=== PATIENT | male | born 1995 | race Caucasian/White ===

== ENCOUNTER 2016-07-17 00:36 | Emergency (ER) | payer OTHER ==
[~2016-07-17] VITALS: Ht 172.7 cm; Wt 68.6 kg
[~2016-07-17 00:36] MED LIST: EPP3/2 IM
[2016-07-17 00:54] VITALS: TEMP 36.8; Ht 172.7 cm; Wt 68.6 kg
[2016-07-17] MEDS ORDERED: VNTHFA/IN INH (00:57)
[2016-07-17] MEDS ORDERED: LORAZEPAM 2 MG/ML 1 ML VIAL IV STA (01:09)
[2016-07-17 01:56] LABS: BASO % 0.2 %; BASO ABS # 0.02 K/uL (0-0.2); COMPLETE YES; EOS % 0.4 %; HEMATOCRIT 43.4 % (42-52); IG% 0.2 %; LYMPH % 24.3 %; MEAN CELL VOLUME 86.8 fL (80-100); MEAN CORPUSCULAR HEMOGLOBIN 31.2 pg (25-34); MEAN CORPUSCULAR HGB CONC 35.9 g/dl (32-36); MONO % 8.6 %; NEUT % 66.3 %; PLATELET COUNT 251 K/uL (130-400)
[2016-07-17 02:16] LABS: ALT/SGPT 33 U/L (12-78); AST/SGOT 18 U/L (15-37); BLOOD UREA NITROGEN 15 mg/dl (7-18); BUN/CREATININE RATIO 17.1 (10-20); CARBON DIOXIDE 26 mmol/L (21-32); CHLORIDE 105 mmol/L (98-107); CREATININE 0.88 mg/dl (0.60-1.40); GLUCOSE 91 mg/dl (70-99); POTASSIUM 2.9 mmol/L (3.5-5.1); SODIUM 141 mmol/L (136-145)
[2016-07-17 02:21] LABS: ALKALINE PHOSPHATASE 49 U/L (45-117); CKMB/CK RATIO 1.3 (0-3.0)
[2016-07-17] MEDS ORDERED: POTASSIUM CHLORIDE 10 MEQ TABCR PO STA (03:00)
[2016-07-17] MEDS ORDERED: ATIVAN 1MG HOMEPACK PO ONE (03:15)
[2016-07-17 03:29] VITALS: BP 121/74; PULSE 72; O2SAT 98
--- NOTE | 2016-07-17 05:24 | EMERGENCY ROOM VISIT NOTE ---
History First contact with patient: 01:07 Chief Complaint: ANXIETY Stated Complaint: CHEST PAIN/ANXIETY History of Present Illness The patient is a 21 year old male who presents to the Emergency Room with complaints of feeling stressed and overwhelmed with chest pain and anxiety the past few days after breaking up with his girlfriend. Patient states she found out that his girlfriend was cheating on him. They have a child together. He states he feels overwhelmed and stressed out. He does have partial custody of the child. Patient denies fever, chills, dysuria, thoughts of suicide, thoughts of homicide, delusions, hallucinations, lightheadedness or dizziness. He does not currently have a therapist. No alcohol or drug use. Review of Systems See HPI for pertinent positives & negatives. A total of 10 systems reviewed and were otherwise negative. Past Medical/Surgical History Medical Problems: (1) Acute bronchitis (2) ALCOHOL ABUSE-UNSPEC (3) ANXIETY STATE NOS (4) CANNABIS ABUSE-UNSPEC (5) Corneal abrasion, right (6) DEPRESSIVE DISORDER NEC (7) Gastroenteritis (8) Head injury (9) HYPERTENSION NOS (10) Laceration (11) Left eye trauma (12) left knee surgery (13) POISONING-ANTITUSSIVES Family History Diabetes mellitus FH: heart disease FHx: cancer FHx: gallbladder disease FHx: lung disease Hypertension Kidney disease Kidney stones Social History Smoking Status: Current Every Day Smoker Alcohol Use: none Drug Use: none, marijuana Marital Status: Housing Status: lives with family Occupation Status: unemployed Current/Historical Medications Scheduled PRN Albuterol Hfa (Ventolin Hfa), 2-4 PUFFS INH DIRECTED PRN for SOB/Wheezing Epinephrine (Epipen), 0.3 MG IM UD PRN for ALLERGIC REACTION Allergies Coded Allergies: Chocolate (Verified Allergy, Severe, ANAPHYLAXIS, 07/17/16) THE COCOA ZACARIAS ONLY..CAN EAT WHITE CHOCOLATE..pt reports throat closes when eats chocolate Physical Exam Vital Signs Date Time Temp Pulse Resp B/P Pulse Ox O2 Delivery O2 Flow Rate FiO2 07/17/16 03:29 72 20 121/74 98 Room Air 07/17/16 02:23 77 19 136/91 97 Room Air 07/17/16 00:54 36.8 96 12 128/96 99 Room Air 07/17/16 00:50 77 07/17/16 00:45 Room Air Pain Rating (0-10): 0 Physical Exam VITALS: Vitals are noted on the nurse's note and reviewed by myself. Vital signs stable. GENERAL: Anxious-appearing male, in no acute distress, nondiaphoretic, well- developed well-nourished. SKIN: The skin was without rashes, erythema, edema, or bruising. There is no tenting of the skin. Capillary reflex less than 2 seconds. HEAD: Normocephalic atraumatic. EARS: External auditory canals clear, tympanic membranes pearly ortega without erythema or effusion bilaterally. EYES: Pupils equal round and reactive to light and accommodation. Conjunctivae without injection, sclerae without icterus. Extraocular movements intact. NOSE: Patent, turbinates without inflammation or discharge. MOUTH: Mucous membranes moist. Pharynx without erythema or exudate. Uvula midline. Airway patent. Tongue does not deviate. NECK: Supple without nuchal rigidity. No lymphadenopathy. No thyromegaly. Cervical spine is nontender. No JVD. HEART: Regular rate and rhythm without murmurs gallops or rubs. LUNGS: Clear to auscultation bilaterally without wheezes, rales or rhonchi. No dullness to percussion. No retractions or accessory muscle use. ABDOMEN: Positive bowel sounds x 4. Normal tympanic percussion. Soft, nontender, without masses or organomegaly. Bardales sign negative. No guarding or rebound tenderness. MUSCULOSKELETAL: No muscle atrophy, erythema, or edema noted. NEURO: Patient was alert and oriented to person place and time. Normal sensation to light and sharp touch. No focal neurological deficits. Psych: Anxious-appearing cooperative Medical Decision & Procedures Laboratory Results 07/17/16 01:38 Red Blood Count 5.00, Mean Corpuscular Volume 86.8, Mean Corpuscular Hemoglobin 31.2, Mean Corpuscular Hemoglobin Concent 35.9, Mean Platelet Volume 11.0, Neutrophils (%) (Auto) 66.3, Lymphocytes (%) (Auto) 24.3, Monocytes (%) (Auto) 8.6, Eosinophils (%) (Auto) 0.4, Basophils (%) (Auto) 0.2, Neutrophils # (Auto) 6.83, Lymphocytes # (Auto) 2.50, Monocytes # (Auto) 0.89, Eosinophils # (Auto) 0.04, Basophils # (Auto) 0.02 07/17/16 01:38 Test 07/17/16 01:38 White Blood Count 10.30 K/uL (4.8-10.8) Red Blood Count 5.00 M/uL (4.7-6.1) Hemoglobin 15.6 g/dL (14.0-18.0) Hematocrit 43.4 % (42-52) Mean Corpuscular Volume 86.8 fL (80-100) Mean Corpuscular Hemoglobin 31.2 pg (25-34) Mean Corpuscular Hemoglobin Concent 35.9 g/dl (32-36) Platelet Count 251 K/uL (130-400) Mean Platelet Volume 11.0 fL (7.4-10.4) Neutrophils (%) (Auto) 66.3 % Lymphocytes (%) (Auto) 24.3 % Monocytes (%) (Auto) 8.6 % Eosinophils (%) (Auto) 0.4 % Basophils (%) (Auto) 0.2 % Neutrophils # (Auto) 6.83 K/uL (1.4-6.5) Lymphocytes # (Auto) 2.50 K/uL (1.2-3.4) Monocytes # (Auto) 0.89 K/uL (0.11-0.59) Eosinophils # (Auto) 0.04 K/uL (0-0.5) Basophils # (Auto) 0.02 K/uL (0-0.2) RDW Standard Deviation 42.5 fL (36.4-46.3) RDW Coefficient of Variation 13.4 % (11.5-14.5) Immature Granulocyte % (Auto) 0.2 % Immature Granulocyte # (Auto) 0.02 K/uL (0.00-0.02) Anion Gap 10.0 mmol/L (3-11) Est Creatinine Clear Calc Drug Dose 127.4 ml/min Estimated GFR () 141.3 Estimated GFR (Non- 121.9 BUN/Creatinine Ratio 17.1 (10-20) Calcium Level 9.0 mg/dl (8.5-10.1) Magnesium Level 2.0 mg/dl (1.8-2.4) Total Bilirubin 0.7 mg/dl (0.2-1) Direct Bilirubin 0.2 mg/dl (0-0.2) Aspartate Amino Transf (AST/SGOT) 18 U/L (15-37) Alanine Aminotransferase (ALT/SGPT) 33 U/L (12-78) Alkaline Phosphatase 49 U/L (45-117) Total Creatine Kinase 72 U/L (39-308) Creatine Kinase MB 0.9 ng/ml (0.5-3.6) Creatine Kinase MB Ratio 1.3 (0-3.0) Troponin I < 0.015 ng/ml (0-0.045) Total Protein 7.4 gm/dl (6.4-8.2) Albumin 4.6 gm/dl (3.4-5.0) Medications Administered Medications (Trade) Dose Ordered Sig/Aiden Route Start Time Stop Time Status Last Admin Dose Admin Lorazepam (Ativan Inj) 1 mg NOW STAT IV 07/17/16 01:09 07/17/16 01:11 DC 07/17/16 01:47 1 MG Potassium Chloride (Klor-Con M10) 60 meq NOW STAT PO 07/17/16 03:00 07/17/16 03:01 DC 07/17/16 03:25 60 MEQ Lorazepam (Ativan 1MG Home Pack) 1 homepack UD ONCE PO 07/17/16 03:15 07/17/16 03:16 DC 07/17/16 03:25 1 HOMEPACK ED Course Prior records/ancillary studies reviewed. Triage Nursing notes reviewed. Additional history obtained from family. The patient's history was concerning for chest pain. Differential diagnosis: Etiologies such as anxiety, cardiac ischemia, aortic dissection, pulmonary embolism, pneumonia, pneumothorax, musculoskeletal, infections, pericarditis, myocarditis, esophageal rupture, gastrointestinal, as well as others were entertained. Physical examination: As above. ER treatment provided: Ativan On reassessment the patient felt better. Diagnostic interpretation by me: The electrocardiogram was negative for pathologic change. Normal sinus, normal intervals, no acute ST-T wave changes. Impression normal sinus rhythm interpreted by myself The labs revealed no worrisome electrolyte abnormality besides hypokalemia and this is replaced orally. Negative troponin Imaging studies: Chest x-ray without acute consolidation or pneumothorax per my interpretation Exam and history seem consistent with chest pain related to anxiety. Patient has been overwhelmed and stressed lately. He had no suicidal or homicidal ideations on exam. He is well-appearing. He was given information on therapists in the area. He did not want to speak to a therapist tonalonzo. He was advised to decrease his stress and follow-up with family care in a few days or here in the ER sooner for chest pain, difficulty breathing, but the suicide, worsening signs or symptoms or as needed. By the evaluation outlined above emergent etiologies such as cardiac ischemia, aortic dissection, pulmonary embolism, pneumonia, pneumothorax, infections, pericarditis, myocarditis, gastrointestinal, as well as others were deemed relatively unlikely. The pt informed about the findings as listed above. All questions were answered and pleased with the treatment. Return instructions were outlined and the patient was discharged in stable condition. Referral: The patient was referred back to primary care physician for follow-up in 2 to 3 days for a recheck of the current condition. Case reviewed by attending Medical Decision As above Impression Primary Impression: Anxiety Additional Impression: Hypokalemia Departure Information Dispostion Home / Self-Care Condition GOOD Referrals Georgina Cast D.O. (PCP) Forms HOME CARE DOCUMENTATION FORM, IMPORTANT VISIT INFORMATION Patient Instructions Anxiety Body Response, Hypokalemia Dc, [facility] Additional Instructions DO NOT drive, drink alcohol, operate machinery, or perform dangerous activities today. You were given medications in the ER that can affect your ability to safely function or operate a vehicle. Take the potassium that was given to you in the ER at lunch tomorrow. Ativan 1m tablet every 8 hours as needed for anxiety. No alcohol or Driving on this medication. Ibuprofen(Motrin, Advil) may be used for fever or pain. Use 600mg every six hours as needed. Take with food. Avoid using more than 2400mg in a 24 hour period. Do not use 2400mg per day for more than three consecutive days without physician direction. Prolonged inappropriate use can lead to stomach upset or ulcers. (AND/OR) Acetaminophen(Tylenol) may be used for fever or pain. Use 1000mg every six hours as needed. Avoid using more than 3000mg in a 24 hour period. Continue current medications. Return to the ER immediately for worsening or persistent anxiety, thoughts of hurting yourself, abdominal pain, vomiting, fevers, chest pains, difficulty breathing, black or bloody stools, worsening of your condition, or as needed. Follow up with your primary physician in 2-3 days for a recheck of your current condition. Recommended to see a therapist. Please use the paper that was given to you to find a therapist in the area. Problem Qualifiers
--- NOTE | 2016-07-17 09:55 | DIAGNOSTIC IMAGING REPORT ---
SINGLE VIEW CHEST CLINICAL HISTORY: Atypical chest pain. FINDINGS: An AP, portable, upright chest radiograph is compared to study dated 04/14/2016. The examination is mildly degraded by portable technique and patient rotation. The cardiomediastinal silhouette is unremarkable. The lungs and pleural spaces are clear. No pneumothorax is seen. The bony thorax is grossly intact. IMPRESSION: No active disease in the chest. Electronically signed by: Eze Esparza M.D. 07/17/2016 9:53 AM Dictated Date/Time: 07/17/2016 9:52 AM
== END 2016-07-17 03:32 | disposition home or self-care (01) ==
LOC: EDBD 00:36 → C.EDB 00:39
DX: F41.9 Anxiety disorder, unspecified (principal); E87.6 Hypokalemia; F12.10 Cannabis abuse, uncomplicated; F32.9 Major depressive disorder, single episode, unspecified; I10 Essential (primary) hypertension; Z83.3 Family history of diabetes mellitus; Z82.49 Family history of ischemic heart disease and other diseases of the circulatory system; F17.210 Nicotine dependence, cigarettes, uncomplicated

== ENCOUNTER 2016-09-12 14:44 | Emergency (ER) | payer OTHER ==
[~2016-09-12] VITALS: Ht 170.2 cm; Wt 65.7 kg
[~2016-09-12 14:44] MED LIST changes: +VNTHFA/IN INH
[2016-09-12 14:50] VITALS: TEMP 37.1; Ht 170.2 cm; Wt 65.7 kg
[2016-09-12] MEDS ORDERED: MUPIROCIN 2% OINT 22 GM TUBE EXT STA (16:30)
[2016-09-12] MEDS ORDERED: CEPHALEXIN 500MG HOME PACK 1 EA BTL PO ONE (16:30)
[2016-09-12] MEDS ORDERED: BCTCR TOP (16:34)
[2016-09-12] MEDS ORDERED: CEPH500C PO (16:34)
--- NOTE | 2016-09-12 16:35 | EMERGENCY ROOM VISIT NOTE ---
History Report prepared by Nacho: Shady Sterling Under the Supervision of: Dr. Rolo Carrera M.D. First contact with patient: 16:20 Chief Complaint: TESTICULAR PAIN Stated Complaint: PAINFUL LUMP ON TESTICLES, HAVING SURG THIS WEEK Nursing Triage Summary: right testicle pain started 3 months going for vasectomy on tuesday lump has swollen and turned purple pain now shooting up in abd makes him want to vomit with the pain. attempted to pop only gets blood History of Present Illness The patient is a 21 year old male who presents to the Emergency Room with complaints of worsening right testicular pain for the past three months. He states that he has a growing lump. The patient states that he tried to move this morning, and he got a sharp pain that radiated into his abdomen. The patient states that the pain is worsened with movement, palpation, coughing, and urinating. The patient denies any fever, chills, penile discharge, lesions, or back pain. He states that he coughs because he is a smoker. The patient states that he is getting a vasectomy in three days, and the urologist has not commented on the lump. The patient states that he tried popping the lump and blood came out. Source of History: patient Onset: three months ago Position: other (testicles) Quality: sharp Timing: worsening Modifying Factors (Worsening): movement, urination Associated Symptoms: No back pain, No chills, No fevers Review of Systems See HPI for pertinent positives & negatives. A total of 10 systems reviewed and were otherwise negative. Past Medical & Surgical Medical Problems: (1) Acute bronchitis (2) ALCOHOL ABUSE-UNSPEC (3) ANXIETY STATE NOS (4) CANNABIS ABUSE-UNSPEC (5) Corneal abrasion, right (6) DEPRESSIVE DISORDER NEC (7) Gastroenteritis (8) Head injury (9) HYPERTENSION NOS (10) Laceration (11) Left eye trauma (12) left knee surgery (13) POISONING-ANTITUSSIVES Old medical records were reviewed. Nurse's notes were reviewed and I agree with. Family History Diabetes mellitus FH: heart disease FHx: cancer FHx: gallbladder disease FHx: lung disease Hypertension Kidney disease Kidney stones Social History Smoking Status: Current Every Day Smoker Alcohol Use: none Drug Use: none, marijuana Marital Status: Housing Status: lives with family Occupation Status: unemployed Current/Historical Medications Scheduled Cephalexin Monohydrate (Keflex), 500 MG PO QID Mupirocin (Bactroban), 1 APPLN TOP TID Scheduled PRN Albuterol Hfa (Ventolin Hfa), 2-4 PUFFS INH DIRECTED PRN for SOB/Wheezing Epinephrine (Epipen), 0.3 MG IM UD PRN for ALLERGIC REACTION Allergies Coded Allergies: Chocolate (Verified Allergy, Severe, ANAPHYLAXIS, 09/12/16) THE COCOA ZACARIAS ONLY..CAN EAT WHITE CHOCOLATE..pt reports throat closes when eats chocolate Physical Exam Vital Signs Date Time Temp Pulse Resp B/P Pulse Ox O2 Delivery O2 Flow Rate FiO2 09/12/16 16:52 74 16 119/72 97 Room Air 09/12/16 14:50 37.1 90 18 125/79 98 Room Air Physical Exam General: Non-ill appearing young male in no acute distress. HEENT: Normal cephalic atraumatic. Pupils are equal round and reactive to light. Extraocular movements are intact. Oropharynx is pink with moist mucous membranes. No swelling of the mouth lips or tongue. Neck: Supple with a midline trachea. No meningeal signs or stiffness, no JVD or bruits. No Stridor. Chest: Clear to auscultation bilaterally. No wheezes or rhonchi. No increased work of breathing. Heart: regular rate and rhythm. Abdomen: Soft nontender, nondistended without rebound guarding or rigidity. : Normal and testicle exams. On the base of the scrotum there is small swollen lump consistent with folliculitis. No drainable abscess. No cellulitis. No evidence of Marisela's gangrene Extremities: No cyanosis clubbing or edema. No calf tenderness or assymetry Spine/Back. Non tender to palpation. No CVA tenderness Skin: Good turgor without rashes. Neurologic exam: Non-focal. Moves all four limbs symmetrically Medical Decision & Procedures Medications Administered Medications (Trade) Dose Ordered Sig/Aiden Route Start Time Stop Time Status Last Admin Dose Admin Cephalexin Monohydrate (Keflex 500MG Home Pack) 1 homepack NOW ONCE PO 09/12/16 16:30 09/12/16 16:32 DC 09/12/16 16:30 1 HOMEPACK Mupirocin (Bactroban 2% Oint) 1 appln 1700 ONCE EXT 09/12/16 17:00 09/12/16 17:01 DC 09/12/16 16:52 1 APPLN ED Course 1620: Past medical records reviewed. The patient was evaluated in room C3, and a complete history and physical examination were performed. 1630: Keflex 500mg 1 Home Pack PO, Bactroban 2% Oint 1 appln EXT 1636: Upon reevaluation, the patient is feeling better. He states that he is not allergic to ibuprofen. I discussed the results and treatment plan with him. He verbalized agreement of the treatment plan. The patient was discharged home. Medical Decision Differentials include, but are not limited to; testicular torsion, epididymitis , hernia, cellulitis, folliculitis. This Patient comes in as described above. He was placed in room C3 with testicular pain although on exam and it is not actually his testicles. He has a small area of folliculitis of his scrotum. There is no evidence of cellulitis or Marisela's gangrene. The testicles and penis are normal and he has no evidence to suggest torsion epididymitis or orchitis. There is no drainable abscess at this point. I gave him a prescription for Bactroban as well as by mouth Keflex. He should keep the area clean and dry and use scrotal support return if increasing pain or swelling, redness or warmth or drainage, any new problems or concerns and keep his follow-up appointment this week with his doctor and get rechecked. Impression Primary Impression: Folliculitis Scribe Attestation The scribe's documentation has been prepared under my direction and personally reviewed by me in its entirety. I confirm that the note above accurately reflects all work, treatment, procedures, and medical decision making performed by me. Departure Information Dispostion Home / Self-Care Prescriptions Cephalexin Monohydrate (Keflex) 500 Mg Cap 500 MG PO QID for 7 Days, #28 CAP Prov: Rolo Carrera M.D. 09/12/16 Mupirocin (Bactroban) 15 Gm Cr 1 APPLN TOP TID for 10 Days, #30 GM Prov: Rolo Carrera M.D. 09/12/16 Forms HOME CARE DOCUMENTATION FORM, IMPORTANT VISIT INFORMATION, WORK / SCHOOL INSTRUCTIONS Patient Instructions [facility] Additional Instructions Rest. Use supportive underwear. Keep the area clean and dry. His warm compresses or take a bath. Apply Bactroban three times a daytopical antibiotic Use Keflex 500 mg 4 times a day for 7 days Use anti-inflammatory such as ibuprofen 400 mg every 6 hours for pain. Follow-up with your doctor this week for recheck.
[2016-09-12 16:52] VITALS: BP 119/72; PULSE 74; O2SAT 97
[2016-09-12] MEDS ORDERED: MUPIROCIN 2% OINT 22 GM TUBE EXT ONE (17:00)
== END 2016-09-12 16:54 | disposition home or self-care (01) ==
LOC: C.EDB 14:45 → C.EDC 16:54
DX: L73.9 Follicular disorder, unspecified (principal); F41.9 Anxiety disorder, unspecified; F32.9 Major depressive disorder, single episode, unspecified; I10 Essential (primary) hypertension; K52.9 Noninfective gastroenteritis and colitis, unspecified; F10.10 Alcohol abuse, uncomplicated; F12.10 Cannabis abuse, uncomplicated; F17.210 Nicotine dependence, cigarettes, uncomplicated; Z83.3 Family history of diabetes mellitus; Z82.49 Family history of ischemic heart disease and other diseases of the circulatory system; Z80.9 Family history of malignant neoplasm, unspecified; Z83.79 Family history of other diseases of the digestive system; Z83.6 Family history of other diseases of the respiratory system; Z84.1 Family history of disorders of kidney and ureter

== ENCOUNTER 2017-01-31 23:58 | Emergency (ER) | payer OTHER ==
[~2017-01-31] VITALS: Ht 172.7 cm; Wt 68.0 kg
[2017-02-01 00:02] VITALS: TEMP 36.6; Ht 172.7 cm; Wt 68.0 kg
[2017-02-01] MEDS ORDERED: PROPARACAINE HCL 0.5% OP SOLN 15 ML BTL ONE (00:24)
[2017-02-01] MEDS ORDERED: TOBRAMYCIN/DEXAMETHASONE OPH OINT 3.5 GM TUBE OP STA (00:58)
[2017-02-01 01:29] VITALS: BP 121/66; PULSE 71; O2SAT 97
--- NOTE | 2017-02-01 06:47 | EMERGENCY ROOM VISIT NOTE ---
History Report prepared by Nacho: Shabbir Bettencourt Under the Supervision of: Dr. Rodri Hinds M.D. First contact with patient: 00:19 Chief Complaint: EYE ASSESSMENT Stated Complaint: RIGHT EYE SWOLLEN AND BLURRY History of Present Illness The patient is a 21 year old male who presents to the Emergency Room with complaints of right eye pain that began 2 hours ago. He rates his pain a 7/10 in severity. 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 He states he does not remember getting anything in his eye. A couple of hours ago, he noticed that his eye was red and swollen and began to hurt. This pain also is starting to give him a headache. He notes that he cannot move his eyes to the right without causing him more pain. He does not feel like anything is in the eye itself. He noticed some blurring of his vision in his right eye recently. He denies any recent sicknesses, itching in his eyes, fevers, or vomiting. He denies any past medical problems. Source of History: patient Onset: 2 hours ago Position: eye (right) Symptom Intensity: 7/10 Quality: sharp Timing: constant Modifying Factors (Worsening): movement (eyes to the right) Associated Symptoms: + headache, No fevers, No vomiting Note: He has some blurring of his vision in the right eye. Review of Systems See HPI for pertinent positives & negatives. A total of 10 systems reviewed and were otherwise negative. Past Medical & Surgical Medical Problems: (1) Acute bronchitis (2) ALCOHOL ABUSE-UNSPEC (3) ANXIETY STATE NOS (4) CANNABIS ABUSE-UNSPEC (5) Corneal abrasion, right (6) DEPRESSIVE DISORDER NEC (7) Gastroenteritis (8) Head injury (9) HYPERTENSION NOS (10) Laceration (11) Left eye trauma (12) left knee surgery (13) POISONING-ANTITUSSIVES Family History Diabetes mellitus FH: heart disease FHx: cancer FHx: gallbladder disease FHx: lung disease Hypertension Kidney disease Kidney stones Social History Smoking Status: Never Smoker Smokeless Tobacco Use: No Alcohol Use: none Drug Use: none, marijuana Marital Status: Housing Status: lives with family Occupation Status: unemployed Current/Historical Medications Scheduled PRN Albuterol Hfa (Ventolin Hfa), 2-4 PUFFS INH DIRECTED PRN for SOB/Wheezing Epinephrine (Epipen), 0.3 MG IM UD PRN for ALLERGIC REACTION Allergies Coded Allergies: Chocolate (Verified Allergy, Severe, ANAPHYLAXIS, 02/01/17) THE COCOA ZACARIAS ONLY..CAN EAT WHITE CHOCOLATE..pt reports throat closes when eats chocolate Physical Exam Vital Signs Date Time Temp Pulse Resp B/P (MAP) Pulse Ox O2 Delivery O2 Flow Rate FiO2 02/01/17 01:29 71 18 121/66 97 02/01/17 00:02 36.6 68 18 122/71 98 Room Air Right Eye Acuity: 20/50 Left Eye Acuity: 20/30 Physical Exam Constitutional: Vital signs reviewed. Eyes: Pupils are equal round reactive to light. Minimal injection to the right conjunctiva. There is a area of chemosis to the lateral conjunctiva of the right eye. No foreign body with eversion of the lids. No fluorescein uptake in the right eye. Negative Ryanne sign. Pressure exam showed 24 in right, 26 in left. ENT: Pharynx is clear without erythema or exudate. Mucous membranes are moist. Neck supple without meningeal signs. Respiratory: Clear to auscultation bilaterally. Breath sounds are equal bilaterally. Cardiovascular: Regular rate and rhythm. No rubs or gallops. GI: Soft, nondistended and nontender. Bowel sounds are present. Integumentary: No cyanosis. Neurological: The patient is awake and alert. No focal deficits. Psychiatric: Normal affect. Medical Decision & Procedures Procedure Slit Lamp Examination Indication: Right eye pain The right eye was prepped with topical proparacaine. He had relief of his pain. Slit lamp examination was performed in the standard fashion. Cornea appeared WNL. Anterior chamber WNL. Chemosis to the right eye laterally. No discharge present. Fluorescein examination performed and revealed no uptake. No foreign bodies noted. Negative Ryanne sign. The patient tolerated the procedure well without complication. ED Course 0019: The patient was evaluated in room A3. A complete history and physical exam was performed. 0024: Ordered Proparacaine HCl 225 drops .ROUTE 0030: At this time, I performed a Slit Lamp procedure. Please see the procedure note for more information. 0058: Ordered Tobramycin/ Dexamethasone 1 appln OP 0127: Upon reevaluation, the patient appeared to have improvement of his symptoms. I discussed tonight's findings with him. He verbalized agreement of the treatment plan. He was discharged home. Medical Decision This is a 21-year-old male who presents with right eye pain. Differential diagnosis includes conjunctivitis, trauma, allergic, infection. I did perform a limited focused review of portions of the patient's old chart on the electronic medical record. The patient has had no recent pertinent visits to this hospital. I did evaluate the patient as noted above. The patient is presenting with right eye pain. He has obvious ecchymosis to the lateral aspect of the right eye. I did examine the patient using a slit lamp. He has no fluorescein uptake. There is no evidence of foreign body. No evidence of globe rupture. Intraocular pressures are noted above. The patient had significant improvement of his pain with proparacaine eyedrops. He was therefore discharged with tobramycin eye ointment which she will use 3 times a day. He was advised to follow up later today with ophthalmology and referred to Dr. Noel. Medication Reconcilliation Current Medication List: was personally reviewed by me Blood Pressure Screening Patient's blood pressure: Normal blood pressure Blood pressure disposition: Did not require urgent referral Impression Primary Impression: Chemosis of right conjunctiva Scribe Attestation The scribe's documentation has been prepared under my direct and personally reviewed by me in its entirety. I confirm that the note above accurately reflects all work, treatment, procedures, and medical decision making performed by me. Departure Information Dispostion Home / Self-Care Referrals Georgina Cast D.O. (PCP) Jesus Noel D.O. Forms HOME CARE DOCUMENTATION FORM, IMPORTANT VISIT INFORMATION, WORK / SCHOOL INSTRUCTIONS Patient Instructions My [facility] Additional Instructions You have been examined and treated today on an emergency basis only. This is not a substitute for, or an effort to provide, complete comprehensive medical care. It is impossible to recognize and treat all injuries or illnesses in a single emergency department visit. It is therefore important that you follow up closely with Dr. Noel of ophthalmology later today. Call as soon as possible for an appointment. Return for worsening symptoms or if you develop fever, vomiting, loss of vision, severe headache or any other concerning symptoms. Apply tobramycin ointment to the right eye three times daily.
== END 2017-02-01 01:29 | disposition home or self-care (01) ==
LOC: C.EDB 23:59 → C.EDA 02-01 01:29
DX: H11.421 Conjunctival edema, right eye (principal); I10 Essential (primary) hypertension; F41.9 Anxiety disorder, unspecified; F32.9 Major depressive disorder, single episode, unspecified; Z86.19 Personal history of other infectious and parasitic diseases; Z98.890 Other specified postprocedural states; Z91.018 Allergy to other foods; Z83.3 Family history of diabetes mellitus; Z82.49 Family history of ischemic heart disease and other diseases of the circulatory system; Z80.9 Family history of malignant neoplasm, unspecified; Z83.79 Family history of other diseases of the digestive system; Z84.1 Family history of disorders of kidney and ureter

== ENCOUNTER 2017-02-24 15:09 | Emergency (ER) | payer SELFPAY ==
[~2017-02-24] VITALS: Ht 172.7 cm; Wt 67.0 kg
[2017-02-24 15:19] VITALS: TEMP 36.7; Ht 172.7 cm; Wt 67.0 kg
--- NOTE | 2017-02-24 16:06 | DIAGNOSTIC IMAGING REPORT ---
LEFT FOOT MIN 3 VIEWS ROUTINE CLINICAL HISTORY: 21 years-old Male presenting with L plantar foot pain, possible FB?, Small painful red spot on the plantar aspect of the left foot proximal to the second digit for one week, skin marker placed. TECHNIQUE: Frontal, oblique, and lateral views of the left foot were obtained. COMPARISON: None. FINDINGS: A skin marker is noted over the plantar aspect of the distal forefoot without subjacent soft tissue or osseous abnormality. No acute fracture or subluxation. No evidence of a radiopaque foreign body within the soft tissues. No significant degenerative change. IMPRESSION: No acute osseous abnormality. No radiopaque foreign body at the site of clinical concern. If there is continuing clinical concern for foreign body, ultrasound could be considered. Electronically signed by: Derek Doran M.D. 02/24/2017 4:05 PM Dictated Date/Time: 02/24/2017 4:03 PM
[2017-02-24 16:15] VITALS: BP 95/61; PULSE 83; O2SAT 96
--- NOTE | 2017-02-24 16:27 | EMERGENCY ROOM VISIT NOTE ---
History First contact with patient: 15:23 Chief Complaint: FOOT PAIN Stated Complaint: SOMETHING ON BOTTOM OF LEFT FOOT History of Present Illness The patient is a 21 year old male who presents to the Emergency Room with complaints of something on the bottom of his foot for the past week. The patient denies any known trauma or stepping on a foreign body. He thinks it may be a plantar's wart. The patient has been picking at it. He denies any significant worsening pain. The patient has not called his family doctor or sought other reevaluation from orthopedics, a document examiner or other facility. He rates his discomfort a 4 out of 10 with weightbearing. Patient denies history of diabetes. 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 Review of Systems 10 system review was performed and was negative except for pertinent positives and negatives as indicated in history of present illness Past Medical/Surgical History Medical Problems: (1) Acute bronchitis (2) ALCOHOL ABUSE-UNSPEC (3) ANXIETY STATE NOS (4) CANNABIS ABUSE-UNSPEC (5) Corneal abrasion, right (6) DEPRESSIVE DISORDER NEC (7) Gastroenteritis (8) Head injury (9) HYPERTENSION NOS (10) Laceration (11) Left eye trauma (12) left knee surgery (13) POISONING-ANTITUSSIVES Family History Diabetes mellitus FH: heart disease FHx: cancer FHx: gallbladder disease FHx: lung disease Hypertension Kidney disease Kidney stones Social History Smoking Status: Former Smoker Alcohol Use: none Drug Use: none, marijuana Marital Status: Housing Status: lives with family Occupation Status: unemployed Current/Historical Medications Scheduled PRN Albuterol Hfa (Ventolin Hfa), 2-4 PUFFS INH DIRECTED PRN for SOB/Wheezing Epinephrine (Epipen), 0.3 MG IM UD PRN for ALLERGIC REACTION Physical Exam Vital Signs Date Time Temp Pulse Resp B/P (MAP) Pulse Ox O2 Delivery O2 Flow Rate FiO2 02/24/17 15:19 36.7 83 16 95/61 96 Room Air Physical Exam CONSTITUTIONAL: Healthy and well nourished. HEENT: Normocephalic, atraumatic. Pupils equal, round and reactive. NECK: Full active range of motion without discomfort. MUSCULOSKELETAL: Examination of the left foot shows a lesion just proximal to the second and third metatarsal head region. It is darker in color than the surrounding skin. There is no surrounding erythema, induration, ecchymosis, evidence for bleeding, pustule or vesicle. Transilluminator since does not show any obvious underlying foreign body. INTEGUMENTARY: No rash or other significant dermatologic conditions noted. NEUROLOGIC: No focal neurologic deficits noted. Left foot and toes are sensory intact. Medical Decision & Procedures ER Provider Diagnostic Interpretation: My interpretation of a soft tissue x-ray of the left foot does not show any obvious radiopaque foreign body or underlying bony process. Radiologist report is as follows: LEFT FOOT MIN 3 VIEWS ROUTINE CLINICAL HISTORY: 21 years-old Male presenting with L plantar foot pain, possible FB?, Small painful red spot on the plantar aspect of the left foot proximal to the second digit for one week, skin marker placed. TECHNIQUE: Frontal, oblique, and lateral views of the left foot were obtained. COMPARISON: None. FINDINGS: A skin marker is noted over the plantar aspect of the distal forefoot without subjacent soft tissue or osseous abnormality. No acute fracture or subluxation. No evidence of a radiopaque foreign body within the soft tissues. No significant degenerative change. IMPRESSION: No acute osseous abnormality. No radiopaque foreign body at the site of clinical concern. If there is continuing clinical concern for foreign body, ultrasound could be considered. ED Course Patient history and physical exam were performed. Nurse's notes were reviewed. Vital signs were reviewed and were normal. X-rays of the left foot does not show any underlying bony disease or obvious radiopaque foreign body. The patient was encouraged to follow-up with a document examiner for further reevaluation. He was encouraged to intermittently apply ice as needed for swelling and pain. Ibuprofen or Tylenol if needed for additional pain relief. He was also encouraged to limit weightbearing as needed for additional pain relief. He may also apply a drawing salve and dressing for additional treatment. The patient voiced understanding of all discharge instructions, and denied any significant pain at the conclusion of my exam. Medical Decision Medication Reconcilliation Current Medication List: was personally reviewed by me Blood Pressure Screening Patient's blood pressure: Normal blood pressure Impression Primary Impression: Mass of skin of left foot Departure Information Referrals Georgina Cast D.O. (PCP) Patient Instructions My [facility]
== END 2017-02-24 16:15 | disposition home or self-care (01) ==
LOC: C.EDB 15:11 → C.EDD 16:15
DX: R22.42 Localized swelling, mass and lump, left lower limb (principal); I10 Essential (primary) hypertension; F41.9 Anxiety disorder, unspecified; Z87.09 Personal history of other diseases of the respiratory system; Z87.891 Personal history of nicotine dependence; Z82.49 Family history of ischemic heart disease and other diseases of the circulatory system; Z83.3 Family history of diabetes mellitus; Z83.6 Family history of other diseases of the respiratory system; Z83.79 Family history of other diseases of the digestive system; Z84.1 Family history of disorders of kidney and ureter

== ENCOUNTER 2017-04-20 20:42 | Emergency (ER) | payer OTHER ==
[~2017-04-20] VITALS: Ht 172.7 cm; Wt 71.3 kg
[2017-04-20 20:48] VITALS: TEMP 36.7; Ht 172.7 cm; Wt 71.3 kg
[2017-04-20] MEDS ORDERED: KETOROLAC TROMETHAMINE 30 MG/ML VIAL IV STA (21:05)
[2017-04-20 21:25] LABS: BASO % 0.4 %; BASO ABS # 0.02 K/uL (0-0.2); COMPLETE YES; EOS % 1.5 %; IG% 0.2 %; LYMPH ABS # 1.98 K/uL (1.2-3.4); MEAN CELL VOLUME 87.1 fL (80-100); MEAN CORPUSCULAR HEMOGLOBIN 30.3 pg (25-34); MEAN CORPUSCULAR HGB CONC 34.8 g/dl (32-36); MEAN PLATELET VOLUME 10.5 fL (7.4-10.4); NEUT % 45.9 %; PLATELET COUNT 232 K/uL (130-400); RED BLOOD COUNT 4.82 M/uL (4.7-6.1); WHITE BLOOD COUNT 5.21 K/uL (4.8-10.8)
[2017-04-20 21:43] LABS: ALT/SGPT 33 U/L (12-78); BLOOD UREA NITROGEN 14 mg/dl (7-18); BUN/CREATININE RATIO 14.3 (10-20); CALCIUM 8.6 mg/dl (8.5-10.1); CARBON DIOXIDE 29 mmol/L (21-32); CHLORIDE 107 mmol/L (98-107); CREATININE 0.99 mg/dl (0.60-1.40); GLUCOSE 94 mg/dl (70-99); POTASSIUM 3.7 mmol/L (3.5-5.1); SODIUM 141 mmol/L (136-145)
[2017-04-20 21:44] LABS: ISTAT HEMOGLOBIN 15.3 g/dl (14.0-18.0); ISTAT IONIZED CALCIUM 1.14 mmol/l (1.12-1.32)
[2017-04-20] MEDS ORDERED: OPTIRAY 320 IV PRN (21:45)
[2017-04-20 21:46] LABS: ALKALINE PHOSPHATASE 60 U/L (45-117); AST/SGOT 18 U/L (15-37)
--- NOTE | 2017-04-20 21:54 | DIAGNOSTIC IMAGING REPORT ---
ABD/PELVIS IV CONTRAST ONLY HISTORY: 21 years-old Male rlq abd pain after lifting acute right lower quadrant abdominal pain status post lifting injury COMPARISON: CT abdomen and pelvis 11/27/2012 TECHNIQUE: Multiple axial CT images of the abdomen and pelvis were obtained following the intravenous administration of 115 mL Optiray 320. A dose lowering technique was used consistent with the principals of TIAN. FINDINGS: The imaged inferior cardiac chambers are unremarkable. The imaged lung bases are generally clear. No pneumoperitoneum identified. The liver, spleen, pancreas and adrenal glands are within normal limits. Gallbladder is collapsed. Circumscribed low attenuating 4 mm lesion of the interpolar left kidney suggests simple renal cyst, however is indeterminate and too small to characterize. Is no renal calculi or hydronephrosis. Ureters, urinary bladder and prostate are unremarkable. The abdominal aorta is normal in both course and caliber. No bulky adenopathy. There is no bowel obstruction or focal bowel wall thickening identified. The appendix appears normal. No inguinal hernia identified. No focal soft tissue abnormality. The bones appear intact. Small to moderate sized Schmorl's nodes are seen within the midthoracic spine, notably at the T8 level. IMPRESSION: 1. No acute intra-abdominal or intrapelvic abnormality identified. Normal appendix. 2. Small to moderate Schmorl's nodes of the midthoracic spine, notably at T8. No acute fracture or subluxation of the spine. The above report was generated using voice recognition software. It may contain grammatical, syntax or spelling errors. Electronically signed by: Luther Redd M.D. 04/20/2017 9:52 PM Dictated Date/Time: 04/20/2017 9:46 PM
[2017-04-20 22:35] LABS: URINE APPEARANCE CLEAR (CLEAR); URINE BILIRUBIN NEG (NEG); URINE COLOR YELLOW; URINE NITRITE NEG (NEG); URINE PH 5.5 (4.5-7.5); URINE SPECIFIC GRAVITY 1.037 (1.000-1.030); UROBILINOGEN NEG (NEG); ZZUR CULT IF INDIC CLEAN CATCH NO
[2017-04-20 22:40] VITALS: BP 110/67; PULSE 60; O2SAT 98
[2017-04-20 22:40] LABS: MANUAL MICROSCOPIC REQUIRED? NO; REVIEW REQ? NO
--- NOTE | 2017-04-20 22:54 | EMERGENCY ROOM VISIT NOTE ---
History Report prepared by Chungibdixie: Frankie Duncan Under the Supervision of: Dr. Rich Iverson D.O. First contact with patient: 20:57 Chief Complaint: ABDOMINAL PAIN Stated Complaint: LIGHT WAIST LINE PAIN INTO STOMACH History of Present Illness The patient is a 21 year old male who presents to the Emergency Room with complaints of constant lower abdominal pain beginning shortly prior to arrival. He states that his pain began while at work. He describes his pain as "sharp". The patient states that his pain began in his right groin before radiating into his abdomen. He notes that he was trying to catch a hat with his foot when his pain began. Pt denies headache, change in vision, fevers, chest pain, shortness of breath, nausea, vomiting, diarrhea, pain with urination, numbness, weakness, and melena. No weakness or numbness in his legs. Source of History: patient Onset: shortly prior to arrival Position: abdomen (lower) Quality: sharp Timing: constant Associated Symptoms: No fevers, No chest pain, No SOB, No nausea, No vomiting, No diarrhea, No urinary symptoms, No weakness, No numbness Review of Systems See HPI for pertinent positives & negatives. A total of 10 systems reviewed and were otherwise negative. Past Medical & Surgical Medical Problems: (1) Acute bronchitis (2) ALCOHOL ABUSE-UNSPEC (3) ANXIETY STATE NOS (4) CANNABIS ABUSE-UNSPEC (5) Corneal abrasion, right (6) DEPRESSIVE DISORDER NEC (7) Gastroenteritis (8) Head injury (9) HYPERTENSION NOS (10) Laceration (11) Left eye trauma (12) left knee surgery (13) POISONING-ANTITUSSIVES Family History Diabetes mellitus FH: heart disease FHx: cancer FHx: gallbladder disease FHx: lung disease Hypertension Kidney disease Kidney stones Social History Smoking Status: Current Every Day Smoker Alcohol Use: none Drug Use: none, marijuana Marital Status: Housing Status: lives with family Occupation Status: unemployed Current/Historical Medications Scheduled PRN Albuterol Hfa (Ventolin Hfa), 2-4 PUFFS INH UD PRN for SOB/Wheezing Epinephrine (Epipen), 0.3 MG IM UD PRN for ALLERGIC REACTION Allergies Coded Allergies: Chocolate (Verified Allergy, Severe, ANAPHYLAXIS, 02/01/17) THE COCOA ZACARIAS ONLY..CAN EAT WHITE CHOCOLATE..pt reports throat closes when eats chocolate Physical Exam Vital Signs Date Time Temp Pulse Resp B/P (MAP) Pulse Ox O2 Delivery O2 Flow Rate FiO2 04/20/17 22:40 60 20 110/67 98 Room Air 04/20/17 20:48 36.7 79 18 143/71 98 Room Air Physical Exam GENERAL: Sitting up in bed, alert, well appearing, well nourished, no distress, non-toxic EYE EXAM: normal conjunctiva. OROPHARYNX: no exudate, no erythema, lips, buccal mucosa, and tongue normal and mucous membranes are moist NECK: supple, no nuchal rigidity, no adenopathy, non-tender LUNGS: Clear to auscultation. Normal chest wall mechanics HEART: no murmurs, S1 normal and S2 normal ABDOMEN: abdomen soft, normo-active bowel sounds, no masses, no rebound or guarding. Tenderness to palpation in the RLQ. BACK: Back is symmetrical on inspection and there is no deformity, no midline tenderness, no CVA tenderness. : Normal external circumcised genitalia. No appreciable masses or hernia. Testicles are non-tender. SKIN: no rashes and no bruising UPPER EXTREMITIES: upper extremities are grossly normal. LOWER EXTREMITIES: No pitting edema. NEURO EXAM: Normal sensorium, cranial nerves II-XII grossly intact, normal speech, no weakness of arms, no weakness of legs. Ambulates without difficulty. Medical Decision & Procedures ER Provider Diagnostic Interpretation: CT:Per my review, radiologist interpretation. ABD/PELVIS IV CONTRAST ONLY TECHNIQUE: Multiple axial CT images of the abdomen and pelvis were obtained following the intravenous administration of 115 mL Optiray 320. A dose lowering technique was used consistent with the principals of VLADIMIRRA. FINDINGS: The imaged inferior cardiac chambers are unremarkable. The imaged lung bases are generally clear. No pneumoperitoneum identified. The liver, spleen, pancreas and adrenal glands are within normal limits. Gallbladder is collapsed. Circumscribed low attenuating 4 mm lesion of the interpolar left kidney suggests simple renal cyst, however is indeterminate and too small to characterize. Is no renal calculi or hydronephrosis. Ureters, urinary bladder and prostate are unremarkable. The abdominal aorta is normal in both course and caliber. No bulky adenopathy. There is no bowel obstruction or focal bowel wall thickening identified. The appendix appears normal. No inguinal hernia identified. No focal soft tissue abnormality. The bones appear intact. Small to moderate sized Schmorl's nodes are seen within the midthoracic spine, notably at the T8 level. IMPRESSION: 1. No acute intra-abdominal or intrapelvic abnormality identified. Normal appendix. 2. Small to moderate Schmorl's nodes of the midthoracic spine, notably at T8. No acute fracture or subluxation of the spine. The above report was generated using voice recognition software. It may contain grammatical, syntax or spelling errors. Electronically signed by: Luther Redd M.D. 04/20/2017 9:52 PM Laboratory Results 04/20/17 21:10 Red Blood Count 4.82, Mean Corpuscular Volume 87.1, Mean Corpuscular Hemoglobin 30.3, Mean Corpuscular Hemoglobin Concent 34.8, Mean Platelet Volume 10.5, Neutrophils (%) (Auto) 45.9, Lymphocytes (%) (Auto) 38.0, Monocytes (%) (Auto) 14.0, Eosinophils (%) (Auto) 1.5, Basophils (%) (Auto) 0.4, Neutrophils # (Auto ) 2.39, Lymphocytes # (Auto) 1.98, Monocytes # (Auto) 0.73, Eosinophils # (Auto ) 0.08, Basophils # (Auto) 0.02 04/20/17 21:10 Test 04/20/17 21:10 04/20/17 21:20 04/20/17 22:00 White Blood Count 5.21 K/uL (4.8-10.8) Red Blood Count 4.82 M/uL (4.7-6.1) Hemoglobin 14.6 g/dL (14.0-18.0) Hematocrit 42.0 % (42-52) Mean Corpuscular Volume 87.1 fL (80-100) Mean Corpuscular Hemoglobin 30.3 pg (25-34) Mean Corpuscular Hemoglobin Concent 34.8 g/dl (32-36) Platelet Count 232 K/uL (130-400) Mean Platelet Volume 10.5 fL (7.4-10.4) Neutrophils (%) (Auto) 45.9 % Lymphocytes (%) (Auto) 38.0 % Monocytes (%) (Auto) 14.0 % Eosinophils (%) (Auto) 1.5 % Basophils (%) (Auto) 0.4 % Neutrophils # (Auto) 2.39 K/uL (1.4-6.5) Lymphocytes # (Auto) 1.98 K/uL (1.2-3.4) Monocytes # (Auto) 0.73 K/uL (0.11-0.59) Eosinophils # (Auto) 0.08 K/uL (0-0.5) Basophils # (Auto) 0.02 K/uL (0-0.2) RDW Standard Deviation 42.5 fL (36.4-46.3) RDW Coefficient of Variation 13.2 % (11.5-14.5) Immature Granulocyte % (Auto) 0.2 % Immature Granulocyte # (Auto) 0.01 K/uL (0.00-0.02) Est Creatinine Clear Calc Drug Dose 113.2 ml/min Estimated GFR () 124.8 Estimated GFR (Non- 107.7 BUN/Creatinine Ratio 14.3 (10-20) Calcium Level 8.6 mg/dl (8.5-10.1) Total Bilirubin 0.3 mg/dl (0.2-1) Direct Bilirubin < 0.1 mg/dl (0-0.2) Aspartate Amino Transf (AST/SGOT) 18 U/L (15-37) Alanine Aminotransferase (ALT/SGPT) 33 U/L (12-78) Alkaline Phosphatase 60 U/L (45-117) Total Protein 7.0 gm/dl (6.4-8.2) Albumin 4.1 gm/dl (3.4-5.0) Lipase 108 U/L (73-393) Bedside Hemoglobin 15.3 g/dl (14.0-18.0) Bedside Hematocrit 45 % (42-52) Bedside Sodium 141 mEq/L (135-144) Bedside Potassium 3.7 mEq/L (3.3-5.0) Bedside Chloride 102 mEq/L (101-112) Bedside Total CO2 26 mEq/l (24-31) Anion Gap 17.0 mmol/L (16-25) Bedside Blood Urea Nitrogen 14 mg/dl (7-18) Bedside Creatinine 1.0 mg/dl (0.6-1.3) Bedside Glucose (other) 93 mg/dl (70-99) Bedside Ionized Calcium (Katerina) 1.14 mmol/l (1.12-1.32) Urine Color YELLOW Urine Appearance CLEAR (CLEAR) Urine pH 5.5 (4.5-7.5) Urine Specific [place] 1.037 (1.000-1.030) Urine Protein NEG (NEG) Urine Glucose (UA) NEG (NEG) Urine Ketones NEG (NEG) Urine Occult Blood NEG (NEG) Urine Nitrite NEG (NEG) Urine Bilirubin NEG (NEG) Urine Urobilinogen NEG (NEG) Urine Leukocyte Esterase NEG (NEG) Urine WBC (Auto) 0 /hpf (0-5) Urine RBC (Auto) 0-4 /hpf (0-4) Urine Hyaline Casts (Auto) 1-5 /lpf (0-5) Urine Epithelial Cells (Auto) 5-10 /lpf (0-5) Urine Bacteria (Auto) NEG (NEG) Laboratory results per my review. Medications Administered Medications (Trade) Dose Ordered Sig/Aiden Route Start Time Stop Time Status Last Admin Dose Admin Ketorolac Tromethamine (Toradol Inj) 30 mg NOW STAT IV 04/20/17 21:05 04/20/17 21:06 DC 04/20/17 21:18 30 MG ED Course ED COURSE: Vital signs were reviewed and showed mild hypertension. The patients medical record was reviewed The above diagnostic studies were performed and reviewed. ED treatments and interventions as stated above. 2100: The patient was evaluated in room B2. A complete history and physical examination was performed. 2104: Ordered Toradol Inj 30 mg IV. 2030: Upon reevaluation, the patient is resting comfortably. I discussed my findings with the patient and he understands and agrees with the treatment plan. Based on the patients age, coexisting illnesses, exam and lab findings the decision to treat as an outpatient was made. The patient remained stable while under my care. The patient appeared well at the time of discharge. Medical Decision Differential diagnoses includes but is not limited to gastritis, peptic ulcer disease, GERD, gallbladder disease, pancreatitis, small bowel obstruction, acute coronary syndrome, pericarditis, ischemic bowel, irritable bowel disease, irritable bowel syndrome, appendicitis, diverticulitis, malignancy, hernia, urinary tract infection, torsion, perforation, trauma, infectious. Patient is a 21-year-old male that presents to ER for right lower quadrant abdominal pain. He notes he thinks this started after lifting. He has no other complaints. No signs of torsion or hernia. Minimal tenderness in the right lower quadrant. CBC all BMP, LFTs, bilirubin lipase is unremarkable. UA was negative. CT of abdomen/pelvis was completely benign. Patient was updated in regards to his findings. IV Toradol was given. He was feeling slightly better. He was discharged to follow-up with PCP. Discussed with Pt concerning signs and symptoms to watch out for. Pt was instructed to follow up with their PCP and discussed with the patient their option to return to the ED at anytime for persistent or worsening symptoms. The appropriate anticipatory guidance and out-patient management, including indications for return to the emergency department, were explained at length to the patient and understood. Medication Reconcilliation Current Medication List: was personally reviewed by me Blood Pressure Screening Patient's blood pressure: Elevated blood pressure Blood pressure disposition: Elevated BP felt to be situational Impression Primary Impression: Muscle strain Additional Impression: Abdominal pain Scribe Attestation The scribe's documentation has been prepared under my direction and personally reviewed by me in its entirety. I confirm that the note above accurately reflects all work, treatment, procedures, and medical decision making performed by me. Departure Information Dispostion Home / Self-Care Referrals No Doctor, Assigned (PCP) Forms HOME CARE DOCUMENTATION FORM, IMPORTANT VISIT INFORMATION Patient Instructions Abdominal Pain - [facility], ED Strain Groin, My [facility] Additional Instructions Please follow up with your primary care doctor or if you are a student, [facility] with in the next 24 hours. Any worsening of your symptoms, please return to the ED immediately. This includes any fevers greater than 100.4, worsening pain, swelling of the testicles, groin pain, chest pain, shortness breath, persistent nausea, vomiting, unable to eat or drink, or any other concerning signs or symptoms from your standpoint. This take Tylenol or Motrin as needed for pain. Problem Qualifiers Additional Impression: Abdominal pain Abdominal location: right lower quadrant Qualified Codes: R10.31 - Right lower quadrant pain
== END 2017-04-20 22:56 | disposition home or self-care (01) ==
LOC: C.EDB 20:43
DX: S39.011A Strain of muscle, fascia and tendon of abdomen, initial encounter (principal); X50.9XXA Other and unspecified overexertion or strenuous movements or postures, initial encounter; Y99.0 Civilian activity done for income or pay; F17.210 Nicotine dependence, cigarettes, uncomplicated; I10 Essential (primary) hypertension

== ENCOUNTER 2018-02-06 15:26 | Emergency (ER) | payer SELFPAY ==
[~2018-02-06] VITALS: Ht 172.7 cm; Wt 76.7 kg
[2018-02-06 15:30] VITALS: TEMP 36.6; Ht 172.7 cm; Wt 76.7 kg
[2018-02-06] MEDS ORDERED: LORAZEPAM 2 MG/ML 1 ML VIAL IM STA (16:20)
--- NOTE | 2018-02-06 16:48 | EMERGENCY ROOM VISIT NOTE ---
History Report prepared by Nacho: Jeremy Alberto Under the Supervision of: Dr. Richard Velasco M.D. First contact with patient: 16:08 Chief Complaint: ANXIETY Stated Complaint: ANXIETY History of Present Illness The patient is a 22 year old male who presents to the Emergency Room with complaints of worsening anxiety along with chest pain. The patient reports he has a history of anxiety but does not take any medications for it since he does not have a PCP. He notes that all he does to relieve the anxiety is smoke marijuana but it has been so bad lately all he wants to do is sleep. He also reports he has trouble sleeping because of the chest pain. He describes the chest pain as feeling like "a punch" to the center of his chest and it does not radiate anywhere. He states he believes the chest pain is due to his worsening anxiety. The patient denies recent travel, cough, fevers, depression, suicidal ideation, homicidal ideation, auditory hallucinations, and taking any steroid or hormonal pills, or history of PE or DVT. Source of History: patient Onset: Today Position: other (Generalized) Timing: worsening Associated Symptoms: + chest pain, No fevers, No cough Review of Systems See HPI for pertinent positives and negatives. A total of ten systems were reviewed and were otherwise negative. Past Medical & Surgical Medical Problems: (1) Acute bronchitis (2) ALCOHOL ABUSE-UNSPEC (3) ANXIETY STATE NOS (4) CANNABIS ABUSE-UNSPEC (5) Corneal abrasion, right (6) DEPRESSIVE DISORDER NEC (7) Gastroenteritis (8) Head injury (9) HYPERTENSION NOS (10) Laceration (11) Left eye trauma (12) left knee surgery (13) POISONING-ANTITUSSIVES Family History Diabetes mellitus FH: heart disease FHx: cancer FHx: gallbladder disease FHx: lung disease Hypertension Kidney disease Kidney stones Social History Smoking Status: Never Smoker Alcohol Use: none Drug Use: none, marijuana Marital Status: Housing Status: lives with family Occupation Status: unemployed Current/Historical Medications Scheduled PRN Albuterol Hfa (Ventolin Hfa), 2-4 PUFFS INH UD PRN for SOB/Wheezing Alprazolam (Xanax), 1 TAB PO TID PRN for Anxiety Epinephrine (Epipen), 0.3 MG IM UD PRN for ALLERGIC REACTION Allergies Coded Allergies: Chocolate (Verified Allergy, Severe, ANAPHYLAXIS, 02/06/18) THE COCOA ZACARIAS ONLY..CAN EAT WHITE CHOCOLATE..pt reports throat closes when eats chocolate Physical Exam Vital Signs Date Time Temp Pulse Resp B/P (MAP) Pulse Ox O2 Delivery O2 Flow Rate FiO2 02/06/18 18:45 67 18 131/83 99 02/06/18 15:30 36.6 86 18 131/96 99 Room Air Physical Exam Physical Exam GENERAL: He is oriented to person, place, and time. He appears well-developed and well-nourished. He does not appear distressed. HENT: Exam performed. Head: Normocephalic and atraumatic. Right Ear: External ear normal. No mastoid tenderness. Left Ear: External ear normal. No mastoid tenderness. Mouth/Throat: The oropharynx is clear and moist. No trismus in the jaw. No dental abscesses or uvula swelling. No oropharyngeal exudate or tonsillar abscesses. EYES: Conjunctivae and EOM are normal. Pupils are equal, round, and reactive to light. Right eye exhibits no discharge. Left eye exhibits no discharge. No scleral icterus. NECK: Normal range of motion. Neck supple. No JVD present. No spinous process tenderness present. No carotid bruit present. No rigidity. No tracheal deviation and normal range of motion present. No Brudzinski's sign and no Kernig 's sign noted. CV: Normal rate, regular rhythm, normal heart sounds and intact distal pulses. There is no peripheral edema. Palpable radial pulses bue. PULM/CHEST: Effort normal and breath sounds normal. No respiratory distress. No stridor. He has no wheezes. He has no rales. Chest Wall: He exhibits no tenderness. ABD: The abdomen is soft. Bowel sounds are normal. He has no distension. No mass is present. There is no tenderness. There is no rebound, no guarding, no Bardales's sign and no tenderness at McBurney's point. Rovsig negative. MUSC/SKEL: Normal range of motion. There is no peripheral edema, tenderness or deformity. LYMPH: No cervical adenopathy. NEURO: He is alert and oriented to person, place, and time. He has normal strength. No cranial nerve deficit or sensory deficit. Coordination and gait normal. GCS eye subscore is 4. GCS verbal subscore is 5. GCS motor subscore is 6. Cerebellar tests wnl. SKIN: Skin is warm and dry. He is not diaphoretic. PSYCH: He has a normal mood and affect. Behavior is anxious. Judgment and thought content normal. Medical Decision & Procedures Laboratory Results 02/06/18 16:49 Red Blood Count 4.83, Mean Corpuscular Volume 87.8, Mean Corpuscular Hemoglobin 30.0, Mean Corpuscular Hemoglobin Concent 34.2, Mean Platelet Volume 10.7, Neutrophils (%) (Auto) 58.4, Lymphocytes (%) (Auto) 28.5, Monocytes (%) (Auto) 11.2, Eosinophils (%) (Auto) 1.3, Basophils (%) (Auto) 0.4, Neutrophils # (Auto ) 3.12, Lymphocytes # (Auto) 1.52, Monocytes # (Auto) 0.60, Eosinophils # (Auto ) 0.07, Basophils # (Auto) 0.02 02/06/18 16:49 Test 02/06/18 16:31 02/06/18 16:49 02/06/18 18:16 Bedside Glucose 97 mg/dl (70-99) White Blood Count 5.34 K/uL (4.8-10.8) Red Blood Count 4.83 M/uL (4.7-6.1) Hemoglobin 14.5 g/dL (14.0-18.0) Hematocrit 42.4 % (42-52) Mean Corpuscular Volume 87.8 fL (80-100) Mean Corpuscular Hemoglobin 30.0 pg (25-34) Mean Corpuscular Hemoglobin Concent 34.2 g/dl (32-36) Platelet Count 234 K/uL (130-400) Mean Platelet Volume 10.7 fL (7.4-10.4) Neutrophils (%) (Auto) 58.4 % Lymphocytes (%) (Auto) 28.5 % Monocytes (%) (Auto) 11.2 % Eosinophils (%) (Auto) 1.3 % Basophils (%) (Auto) 0.4 % Neutrophils # (Auto) 3.12 K/uL (1.4-6.5) Lymphocytes # (Auto) 1.52 K/uL (1.2-3.4) Monocytes # (Auto) 0.60 K/uL (0.11-0.59) Eosinophils # (Auto) 0.07 K/uL (0-0.5) Basophils # (Auto) 0.02 K/uL (0-0.2) RDW Standard Deviation 42.3 fL (36.4-46.3) RDW Coefficient of Variation 13.1 % (11.5-14.5) Immature Granulocyte % (Auto) 0.2 % Immature Granulocyte # (Auto) 0.01 K/uL (0.00-0.02) Anion Gap 5.0 mmol/L (3-11) Est Creatinine Clear Calc Drug Dose 126.3 ml/min Estimated GFR () 140.3 Estimated GFR (Non- 121.1 BUN/Creatinine Ratio 14.3 (10-20) Calcium Level 8.3 mg/dl (8.5-10.1) Total Bilirubin 0.3 mg/dl (0.2-1) Direct Bilirubin 0.1 mg/dl (0-0.2) Aspartate Amino Transf (AST/SGOT) 18 U/L (15-37) Alanine Aminotransferase (ALT/SGPT) 42 U/L (12-78) Alkaline Phosphatase 48 U/L (45-117) Total Protein 6.7 gm/dl (6.4-8.2) Albumin 3.9 gm/dl (3.4-5.0) Thyroid Stimulating Hormone (TSH) 1.260 uIu/ml (0.300-4.500) Ethyl Alcohol mg/dL < 3.0 mg/dl (0-3) Urine Color YELLOW Urine Appearance TURBID (CLEAR) Urine pH 8.5 (4.5-7.5) Urine Specific [place] 1.023 (1.000-1.030) Urine Protein NEG (NEG) Urine Glucose (UA) NEG (NEG) Urine Ketones NEG (NEG) Urine Occult Blood NEG (NEG) Urine Nitrite NEG (NEG) Urine Bilirubin NEG (NEG) Urine Urobilinogen NEG (NEG) Urine Leukocyte Esterase NEG (NEG) Urine WBC (Auto) 1-5 /hpf (0-5) Urine RBC (Auto) 0-4 /hpf (0-4) Urine Hyaline Casts (Auto) 10-30 /lpf (0-5) Urine Epithelial Cells (Auto) >30 /lpf (0-5) Urine Bacteria (Auto) NEG (NEG) Urine Crystals (NONE PRSENT) Urine Opiates Screen NEG (NEG) Urine Methadone, Qualitative NEG (NEG) Urine Barbiturates NEG (NEG) Urine Phencyclidine (PCP) Level NEG (NEG) Ur Amphetamine/Methamphetamine NEG (NEG) MDMA (Ecstasy) Screen NEG (NEG) Urine Benzodiazepines Screen NEG (NEG) Urine Cocaine Metabolite NEG (NEG) Urine Marijuana (THC) POS (NEG) Laboratory results reviewed by me Medications Administered Medications (Trade) Dose Ordered Sig/Aiden Route Start Time Stop Time Status Last Admin Dose Admin Lorazepam (Ativan Inj) 1 mg NOW STAT IM 02/06/18 16:20 02/06/18 16:21 DC 02/06/18 16:40 1 MG ECG Per My Interpretation Indication: chest pain Rate (beats per minute): 67 Rhythm: sinus rhythm Findings: other ([place], QRS, and QTC intervals within normal limits, No ST elevation or depression) ED Course 1614: The patient was evaluated in room A6. A complete history and physical exam was performed. 1620: 1 mg Lorazepam IM 1810: Patient medically cleared. The psych supportive employment case manager visited and cleared the patient. Patient will follow up with outpatient psychiatric facilities. DISCHARGE - Plan of care discussed with patient and questions answered. The patient was given both verbal and printed discharge instructions. The patient verbalized understanding and ability to comply. The patient is to seek outpatient follow up as noted in the discharge instructions. The patient verbalized understanding and ability to comply. The patient is discharged in stable condition. The patient was instructed to return for worsening symptoms. Medical Decision 1614: The patient was evaluated in room A6. A complete history and physical exam was performed. 1620: 1 mg Lorazepam IM 1810: Patient medically cleared. The psych supportive employment case manager visited and cleared the patient. Patient will follow up with outpatient psychiatric facilities. DISCHARGE - Plan of care discussed with patient and questions answered. The patient was given both verbal and printed discharge instructions. The patient verbalized understanding and ability to comply. The patient is to seek outpatient follow up as noted in the discharge instructions. The patient verbalized understanding and ability to comply. The patient is discharged in stable condition. The patient was instructed to return for worsening symptoms. [place] Drug Monitoring Program Search Results: patient reviewed within database (No control substance prescriptions were found in the past year) Medication Reconcilliation Current Medication List: was personally reviewed by me Blood Pressure Screening Patient's blood pressure: Elevated blood pressure Blood pressure disposition: Elevated BP felt to be situational Impression Primary Impression: Acute anxiety Scribe Attestation The scribe's documentation has been prepared under my direction and personally reviewed by me in its entirety. I confirm that the note above accurately reflects all work, treatment, procedures, and medical decision making performed by me. The chart was completed utilizing [employer] Speech voice recognition software. Grammatical errors, random word insertions, pronoun errors, and incomplete sentences are an occasional consequence of this system due to software limitations, ambient noise, and hardware issues. Any formal questions or concerns about the content, text, or information contained within the body of this dictation should be directly addressed to the physician for clarification. Departure Information Dispostion Home / Self-Care Prescriptions Alprazolam (XANAX) 0.5 Mg Tab 1 TAB PO TID Y for Anxiety, #21 TAB Prov: Richard Velasco M.D. 02/06/18 Referrals Georgina Cast D.O. (PCP) Forms HOME CARE DOCUMENTATION FORM, IMPORTANT VISIT INFORMATION Patient Instructions My [facility]
[2018-02-06 17:01] LABS: BASO % 0.4 %; BASO ABS # 0.02 K/uL (0-0.2); EOS % 1.3 %; EOS ABS # 0.07 K/uL (0-0.5); HEMATOCRIT 42.4 % (42-52); HEMOGLOBIN 14.5 g/dL (14.0-18.0); IG# 0.01 K/uL (0.00-0.02); LYMPH % 28.5 %; LYMPH ABS # 1.52 K/uL (1.2-3.4); MEAN CELL VOLUME 87.8 fL (80-100); MEAN CORPUSCULAR HGB CONC 34.2 g/dl (32-36); MEAN PLATELET VOLUME 10.7 fL (7.4-10.4); MONO % 11.2 %; NEUT % 58.4 %; NEUT ABS # 3.12 K/uL (1.4-6.5); PLATELET COUNT 234 K/uL (130-400); RED CELL DISTRIBUTION WIDTH CV 13.1 % (11.5-14.5); RED CELL DISTRIBUTION WIDTH SD 42.3 fL (36.4-46.3); WHITE BLOOD COUNT 5.34 K/uL (4.8-10.8)
[2018-02-06 17:31] LABS: ALBUMIN 3.9 gm/dl (3.4-5.0); CALCIUM 8.3 mg/dl (8.5-10.1); CREATININE 0.88 mg/dl (0.60-1.40); POTASSIUM 3.8 mmol/L (3.5-5.1); TOTAL PROTEIN 6.7 gm/dl (6.4-8.2)
[2018-02-06] MEDS ORDERED: ALPR0.5T PO (18:30)
[2018-02-06 18:45] VITALS: BP 131/83; PULSE 67; O2SAT 99
== END 2018-02-06 18:51 | disposition home or self-care (01) ==
LOC: C.EDB 15:27 → C.EDA 18:51
DX: F41.9 Anxiety disorder, unspecified (principal); F12.10 Cannabis abuse, uncomplicated; Z91.018 Allergy to other foods

== ENCOUNTER 2024-10-21 15:49 | Inpatient (IN) ==
[2024-10-21] MEDS: SODIUM CHLORIDE 0.9% 1,000 ML IV ONE (16:06)
[2024-10-21] MEDS: RAPID SEQUENCE INDUCTION BAG ONE (16:26)
--- NOTE | 2024-10-21 16:27 | XRay Report ---
Chest radiograph, one view History: Seizure-like activity Comparison: 03/29/2020 Findings: Single AP view of the chest performed. No focal consolidation or pleural effusion. No pneumothorax. The cardiomediastinal silhouette is within normal limits. Normal pulmonary vascularity. No evidence for lymphadenopathy. No visualized bony or soft tissue abnormality. Impression: Normal chest radiograph Electronically signed by Trung Bermudez 10-21-2024 4:27 PM
--- NOTE | 2024-10-21 16:49 | CT Scan Report ---
CT head without contrast History: Unresponsive Comparison: 05/12/2015 Technique: Using multidetector thin collimation helical acquisition technique, axial, coronal and sagittal CT images from the skull base to the vertex were obtained without intravenous contrast. Dose reduction techniques were achieved by using automatic exposure control and/or adjustment of mA and/or kV according to patient size and/or use of iterative reconstruction technique. Findings: No intracranial hemorrhage, mass-effect, or midline shift. The ventricles are proportionate to the cerebral sulci. The ortega to white matter differentiation of the cerebral hemispheres is preserved. The basal cisterns are patent. The visualized paranasal sinuses are clear. Mastoid air cells are clear. Impression: No acute intracranial pathology. Electronically signed by Trung Bermudez 10-21-2024 4:48 PM
[2024-10-21 16:51] LABS: Basophils # (auto) 0.06 K/uL (0.00-0.20); Basophils % (auto) 0.7 %; Eosinophils % (auto) 1.2 %; Hematocrit (blood only) 47.9 % (42.0-52.0); Hemoglobin 16.4 g/dl (14.0-18.0); Immature Granulocytes # (auto) 0.02 K/uL (0.01-0.20); Immature Granulocytes % (auto) 0.2 %; Lymphocytes # (auto) 1.64 K/uL (1.20-3.40); Lymphocytes % (auto) 19.9 %; Mean Corpuscular Hemoglobin 30.3 pg (25.0-34.0); Mean Corpuscular Hgb Conc 34.2 g/dL (32.0-36.0); Mean Corpuscular Volume 88.4 fL (80.0-100.0); Mean Platelet Volume 10.8 fL (9.4-12.4); Monocytes # (auto) 0.86 K/uL (0.11-0.59); Monocytes % (auto) 10.4 %; Neutrophils # (auto) 5.56 K/uL (1.40-6.50); Neutrophils % (auto) 67.6 %; Platelet Count 289 K/uL (130-400); RDW Coefficient of Variation 12.4 % (11.5-14.5); RDW Standard Deviation 40.5 fL (36.4-46.3); Red Blood Count 5.42 M/uL (4.70-6.10); White Blood Count 8.24 K/ul (4.8-10.8)
--- NOTE | 2024-10-21 16:51 | CT Scan Report ---
CT cervical spine without IV contrast History: Unresponsive Comparison: 05/12/2015 Technique: Using multidetector thin collimation helical acquisition technique, axial, coronal and sagittal CT images through the cervical spine were obtained without intravenous contrast. Dose reduction techniques were achieved by using automatic exposure control and/or adjustment of mA and/or kV according to patient size and/or use of iterative reconstruction technique. Findings: The cervical vertebrae are normally aligned. Normal cervical lordosis. No acute fracture or subluxation. No prevertebral edema. There is no disc height narrowing at any level. No substantial spinal canal or neural foraminal stenosis No abnormality of the paraspinous soft tissues. Impression: No acute fracture or traumatic subluxation. Electronically signed by Trung Bermudez 10-21-2024 4:51 PM
[2024-10-21 17:06] LABS: BUN Creatinine Ratio 13.9 (10-20); Calcium 9.3 mg/dl (8.6-10.3); Creatinine Clr Calc Pharmacy 103.5 ml/min; Potassium 4.3 mmol/L (3.5-5.1)
[2024-10-21 17:12] LABS: Troponin I High Sensitivity 31.5 pg/ml (0-20)
[2024-10-21 17:26] LABS: INR 0.9 (0.9-1.1); Partial Thromboplastin Ratio 0.9; Partial Thromboplastin Time 24 Seconds (21-31); Prothrombin Time 10.3 Seconds (9.0-12.0)
--- NOTE | 2024-10-21 17:26 | Emergency Department Note ---
History of Present Illness General Chief complaint: Unresponsive Stated complaint: UNRESPONSIVE Source: EMS History of Present Illness Provider complaint: Unresponsive 29-year-old male presents emergency department from [facility] for being unresponsive. According EMS, they received a call at 1515 stating that the patient was pulseless and found unresponsive in his cell. They stated when they arrived at 1525 the patient did have a pulse and the patient was fluttering. They reportedly gave Versed 5 mg followed by Narcan 2 mg. They stated they were concerned that the patient was having a seizure. At [address] they stated the patient started having tonic-clonic jerking and then the proceeded to give another 5 mg of Versed. 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 Home Medications Medication Instructions Recorded Confirmed Type Accucheck 10/21/24 10/21/24 History Allergies Allergy/AdvReac Type Severity Reaction Status Date / Time chocolate flavor Allergy Severe ANAPHYLAXIS Verified 05/02/19 19:41 cocoa Allergy Severe Anaphylaxis Verified 05/02/19 19:41 Past Med/Surg History Problem List (Updated 10/21/24 @ 20:04 by Richard Velasco MD) Hep C w/o coma, chronic IV drug abuse (Acute) Seizure (Acute) Elevated troponin (Acute) Chest pain Unresponsiveness (Acute) Environmental and seasonal allergies (Chronic) GERD (gastroesophageal reflux disease) (Chronic) Surgical History No significant past surgical history Social History Smoking Status: Former smoker Hx Alcohol Use: Yes Preferred Language: Danish marital status: Single current occupational status: employed Feels Safe at Home: Yes Physical Exam Vital Signs Vital Signs - 24 hr 10/21/24 15:51 10/21/24 15:51 10/21/24 15:51 Temperature 36.9 C 36.9 C Temperature Source Oral Oral Pulse Rate 96 H Pulse Rate [Apical] 92 H Pulse Rate from SpO2 Sensor Respiratory Rate 17 17 Respiratory Effort / Characteristics Non-Labored Non-Labored Respiratory Depth Normal Normal Blood Pressure 114/81 Blood Pressure [Right Arm] 122/80 Blood Pressure Mean 92 Blood Pressure Mean [Right Arm] 94 Pulse Oximetry 100 99 99 Oxygen Delivery Method Non-rebreather Room Air Room Air Oxygen Flow Rate 15 Sepsis Recent Fever Within 48 Hours No Sepsis New/Unexplained Change in Mental Status Yes Sepsis Action Taken by Nursing No Action Required 10/21/24 15:51 10/21/24 15:57 10/21/24 16:00 Temperature Temperature Source Pulse Rate 88 90 Pulse Rate [Apical] Pulse Rate from SpO2 Sensor 88 89 Respiratory Rate 19 18 Respiratory Effort / Characteristics Respiratory Depth Blood Pressure 114/81 Blood Pressure [Right Arm] Blood Pressure Mean 92 Blood Pressure Mean [Right Arm] Pulse Oximetry 100 100 Oxygen Delivery Method Oxygen Flow Rate Sepsis Recent Fever Within 48 Hours Sepsis New/Unexplained Change in Mental Status Sepsis Action Taken by Nursing 10/21/24 16:02 10/21/24 16:02 10/21/24 16:09 Temperature Temperature Source Pulse Rate 92 H Pulse Rate [Apical] Pulse Rate from SpO2 Sensor 91 H Respiratory Rate 17 Respiratory Effort / Characteristics Respiratory Depth Blood Pressure Blood Pressure [Right Arm] Blood Pressure Mean Blood Pressure Mean [Right Arm] Pulse Oximetry 99 99 99 Oxygen Delivery Method Room Air Room Air Oxygen Flow Rate Sepsis Recent Fever Within 48 Hours Sepsis New/Unexplained Change in Mental Status Sepsis Action Taken by Nursing 10/21/24 16:10 10/21/24 16:10 10/21/24 16:12 Temperature Temperature Source Pulse Rate 85 Pulse Rate [Apical] Pulse Rate from SpO2 Sensor 85 Respiratory Rate 17 Respiratory Effort / Characteristics Respiratory Depth Blood Pressure 122/80 122/80 Blood Pressure [Right Arm] Blood Pressure Mean 94 94 Blood Pressure Mean [Right Arm] Pulse Oximetry 99 Oxygen Delivery Method Oxygen Flow Rate Sepsis Recent Fever Within 48 Hours Sepsis New/Unexplained Change in Mental Status Sepsis Action Taken by Nursing 10/21/24 16:15 10/21/24 16:16 10/21/24 16:43 Temperature Temperature Source Pulse Rate 90 Pulse Rate [Apical] 95 H Pulse Rate from SpO2 Sensor Respiratory Rate 20 Respiratory Effort / Characteristics Non-Labored Respiratory Depth Normal Blood Pressure 115/80 Blood Pressure [Right Arm] 122/87 Blood Pressure Mean 91 Blood Pressure Mean [Right Arm] 98 Pulse Oximetry 100 Oxygen Delivery Method Room Air Oxygen Flow Rate Sepsis Recent Fever Within 48 Hours Sepsis New/Unexplained Change in Mental Status Sepsis Action Taken by Nursing 10/21/24 16:45 10/21/24 17:02 10/21/24 17:02 Temperature Temperature Source Pulse Rate Pulse Rate [Apical] Pulse Rate from SpO2 Sensor Respiratory Rate Respiratory Effort / Characteristics Respiratory Depth Blood Pressure 126/88 97/73 L 97/73 L Blood Pressure [Right Arm] Blood Pressure Mean 98 87 87 Blood Pressure Mean [Right Arm] Pulse Oximetry Oxygen Delivery Method Oxygen Flow Rate Sepsis Recent Fever Within 48 Hours Sepsis New/Unexplained Change in Mental Status Sepsis Action Taken by Nursing 10/21/24 17:03 10/21/24 17:24 10/21/24 17:31 Temperature Temperature Source Pulse Rate 97 H 89 Pulse Rate [Apical] Pulse Rate from SpO2 Sensor 97 H Respiratory Rate 21 13 Respiratory Effort / Characteristics Respiratory Depth Blood Pressure 130/100 Blood Pressure [Right Arm] Blood Pressure Mean 104 Blood Pressure Mean [Right Arm] Pulse Oximetry 100 Oxygen Delivery Method Oxygen Flow Rate Sepsis Recent Fever Within 48 Hours Sepsis New/Unexplained Change in Mental Status Sepsis Action Taken by Nursing 10/21/24 17:51 10/21/24 18:00 10/21/24 18:00 Temperature Temperature Source Pulse Rate 90 Pulse Rate [Apical] Pulse Rate from SpO2 Sensor Respiratory Rate 16 Respiratory Effort / Characteristics Respiratory Depth Blood Pressure 134/93 134/93 Blood Pressure [Right Arm] Blood Pressure Mean 108 108 Blood Pressure Mean [Right Arm] Pulse Oximetry Oxygen Delivery Method Oxygen Flow Rate Sepsis Recent Fever Within 48 Hours Sepsis New/Unexplained Change in Mental Status Sepsis Action Taken by Nursing 10/21/24 18:03 10/21/24 18:30 10/21/24 19:56 Temperature Temperature Source Pulse Rate 112 H 91 H 90 Pulse Rate [Apical] Pulse Rate from SpO2 Sensor Respiratory Rate 22 17 18 Respiratory Effort / Characteristics Respiratory Depth Blood Pressure 116/96 132/74 Blood Pressure [Right Arm] Blood Pressure Mean 105 Blood Pressure Mean [Right Arm] Pulse Oximetry 96 Oxygen Delivery Method Room Air Oxygen Flow Rate Sepsis Recent Fever Within 48 Hours Sepsis New/Unexplained Change in Mental Status Sepsis Action Taken by Nursing Physical Exam HENT: Exam performed. - Head: Normocephalic and atraumatic. EYES: Conjunctivae and EOM are normal. Right eye exhibits no discharge. Left eye exhibits no discharge. No scleral icterus. NECK: Normal range of motion. Neck supple. No JVD present. CV: Normal rate, regular rhythm, normal heart sounds and intact distal pulses. There is no peripheral edema. Palpable radial pulses bue. PULM/CHEST: Rhonchi bilaterally. ABD: The abdomen is soft. There is no tenderness. NEURO: Patient appears postictal/sedated after receiving 10 mg of Versed from EMS. SKIN: Skin is warm and dry. He is not diaphoretic. Course Course 1559: The patient was evaluated in room A1. A complete history and physical exam was performed Cardiac monitoring: An order was placed for continuous cardiac monitoring. The monitor shows a rate of 90 with sinus rhythm interpreted by me 1625: Vital signs stable. Patient appears lethargic however he is able to answer some basic questions. Patient states he does have a history of seizure disorder but states he does not know which medications he is on for seizure. Guards at the present report that the patient is not currently seeing any medications for seizures. Patient has clonazepam and buspirone ordered for himself. 1752: Vital signs stable. Labs and imaging are unremarkable with the exception of elevated high-sensitivity troponin. Spoke with Dr. Lee neurology. He recommends loading the patient with Keppra 20 mg/kg. Patient will be admitted for his seizure as well as the elevated troponin. Administered Medications Discontinued Medications Sodium Chloride (Nss) 1,000 mls @ 999 mls/hr IV .Q1H1M ONE Stop: 10/21/24 16:54 Last Infusion: 10/21/24 17:58 Dose: Infused Documented By: Admin: 10/21/24 16:06 Dose: 999 mls/hr Documented By: ANTHONY Levetiracetam (Levetiracetam 500 Mg/5 Ml Vial) 1,550 mg 20 mg/kg (1550 mg) IV NOW STA Stop: 10/21/24 17:52 Last Admin: 10/21/24 17:56 Dose: 1,550 mg Documented By: MELISSA Miscellaneous (Rapid Sequence Induction Bag) Confirm Administered Dose 1 each N/A .STK-MED ONE Stop: 10/21/24 15:46 Last Admin: 10/21/24 16:26 Dose: Not Given Documented By: ANTHONY Medical Decision Making Laboratory Data Attestation: I reviewed the patient's lab results. 10/21/24 16:29 10/21/24 16:29 Lab Results 10/21/24 10/21/24 10/21/24 Range/Units 15:54 16:29 16:40 WBC 8.24 (4.8-10.8) K/ul RBC 5.42 (4.70-6.10) M/uL Hgb 16.4 (14.0-18.0) g/dl Hct 47.9 (42.0-52.0) % MCV 88.4 (80.0-100.0) fL MCH 30.3 (25.0-34.0) pg MCHC 34.2 (32.0-36.0) g/dL RDW Std Deviation 40.5 (36.4-46.3) fL RDW Coeff of Helder 12.4 (11.5-14.5) % Plt Count 289 (130-400) K/uL MPV 10.8 (9.4-12.4) fL Immature Gran % (Auto) 0.2 % Neut % (Auto) 67.6 % Lymph % (Auto) 19.9 % [place] % (Auto) 10.4 % Eos % (Auto) 1.2 % Baso % (Auto) 0.7 % Neut # (Auto) 5.56 (1.40-6.50) K/uL Lymph # (Auto) 1.64 (1.20-3.40) K/uL [place] # (Auto) 0.86 H (0.11-0.59) K/uL Eos # (Auto) 0.10 (0.00-0.50) K/uL Baso # (Auto) 0.06 (0.00-0.20) K/uL Immature Gran # (Auto) 0.02 (0.01-0.20) K/uL PT 10.3 (9.0-12.0) Seconds INR 0.9 (0.9-1.1) APTT 24 (21-31) Seconds PTT Ratio 0.9 Sodium 139 (136-145) mmol/L Potassium 4.3 (3.5-5.1) mmol/L Chloride 102 (98-107) mmol/L Carbon Dioxide 32 (21-32) mmol/L Anion Gap 5 (3-11) BUN 14 (6-23) mg/dl Creatinine 1.01 (0.6-1.4) mg/dl Est Cr Clr Drug Dosing 103.5 ml/min eGFR 102.60 BUN/Creatinine Ratio 13.9 (10-20) Glucose 88 (70-99(Fasting)) mg/dl POC Glucose 109 H (70-99) mg/dl Calcium 9.3 (8.6-10.3) mg/dl Magnesium 2.0 (1.7-2.4) mg/dl Total Creatine Kinase 42 (30-223) U/L Troponin I High Sens 31.5 H (0-20) pg/ml Prolactin 8.10 ng/ml Urine Color Yellow Urine Appearance Clear (Clear) Urine pH 8.0 H (4.5-7.5) Ur Specific [place] 1.017 (1.000-1.030) Urine Protein Negative (Negative) Urine Glucose (UA) Negative (Negative) Urine Ketones Negative (Negative) Urine Blood Negative (Negative) Urine Nitrite Negative (Negative) Urine Bilirubin Negative (Negative) Urine Urobilinogen Negative (Negative) Ur Leukocyte Esterase Negative (Negative) Urine Opiates Screen Neg (Neg) Ur Methadone, Qual Neg (Neg) Urine Fentanyl Screen Neg (Neg) Urine Barbiturates Neg (Neg) Ur Phencyclidine (PCP) Neg (Neg) U Amphetamin/Meth Scrn Neg (Neg) MDMA (Ecstasy) Screen Neg (Neg) U Benzodiazepines Scrn Pos H (Neg) Ur Cocaine Metabolite Neg (Neg) U Marijuana (THC) Screen Pos H (Neg) Ethyl Alcohol mg/dL < 10.0 (<10.0) mg/dl Imaging Data Attestation: I personally reviewed and interpreted this imaging study as follows: My Impression: Chest x-ray negative. Airway clear. No pneumothorax. No consolidation. No cardiomegaly or cephalization.. No free air under the diaphragm. No fractures of the skeletal structures. Radiologist's Impression: Cervical Spine CT 10/21/24 15:54 CT cervical spine without IV contrast History: Unresponsive Comparison: 05/12/2015 Technique: Using multidetector thin collimation helical acquisition technique, axial, coronal and sagittal CT images through the cervical spine were obtained without intravenous contrast. Dose reduction techniques were achieved by using automatic exposure control and/or adjustment of mA and/or kV according to patient size and/or use of iterative reconstruction technique. Findings: The cervical vertebrae are normally aligned. Normal cervical lordosis. No acute fracture or subluxation. No prevertebral edema. There is no disc height narrowing at any level. No substantial spinal canal or neural foraminal stenosis No abnormality of the paraspinous soft tissues. Impression: No acute fracture or traumatic subluxation. Electronically signed by Trung Bermudez 10-21-2024 4:51 PM Chest X-Ray 10/21/24 15:54 Chest radiograph, one view History: Seizure-like activity Comparison: 03/29/2020 Findings: Single AP view of the chest performed. No focal consolidation or pleural effusion. No pneumothorax. The cardiomediastinal silhouette is within normal limits. Normal pulmonary vascularity. No evidence for lymphadenopathy. No visualized bony or soft tissue abnormality. Impression: Normal chest radiograph Electronically signed by Trung Bermudez 10-21-2024 4:[address] 10/21/24 15:54 CT head without contrast History: Unresponsive Comparison: 05/12/2015 Technique: Using multidetector thin collimation helical acquisition technique, axial, coronal and sagittal CT images from the skull base to the vertex were obtained without intravenous contrast. Dose reduction techniques were achieved by using automatic exposure control and/or adjustment of mA and/or kV according to patient size and/or use of iterative reconstruction technique. Findings: No intracranial hemorrhage, mass-effect, or midline shift. The ventricles are proportionate to the cerebral sulci. The ortega to white matter differentiation of the cerebral hemispheres is preserved. The basal cisterns are patent. The visualized paranasal sinuses are clear. Mastoid air cells are clear. Impression: No acute intracranial pathology. Electronically signed by Trung Bermudez 10-21-2024 4:48 PM ECG Data Attestation: I personally reviewed and interpreted this ECG as follows: Additional Comments: EKG #1 at 1602: Sinus rhythm with a rate of 90. [place] QRS and QTc intervals within normal limits. Mild ST segment depressions in lead II only as well as mild ST segment elevation in leads aVR and V1. EKG #2 at 1757: Sinus rhythm with a rate of 99. [place] QRS and QTc intervals within normal limits. No significant change from the EKG done on initial presentation. [facility] Narrative 1559: The patient was evaluated in room A1. A complete history and physical exam was performed Cardiac monitoring: An order was placed for continuous cardiac monitoring. The monitor shows a rate of 90 with sinus rhythm interpreted by me 1625: Vital signs stable. Patient appears lethargic however he is able to answer some basic questions. Patient states he does have a history of seizure disorder but states he does not know which medications he is on for seizure. Guards at the present report that the patient is not currently seeing any medications for seizures. Patient has clonazepam and buspirone ordered for himself. 1752: Vital signs stable. Labs and imaging are unremarkable with the exception of elevated high-sensitivity troponin. Spoke with Dr. Lee neurology. He recommends loading the patient with Keppra 20 mg/kg. Patient will be admitted for his seizure as well as the elevated troponin. Impression & Plan Seizure, IV drug abuse, Unresponsiveness, Elevated troponin Discharge Plan Visit Data Chief Complaint: Unresponsive Stated Complaint: UNRESPONSIVE ED Provider: Richard Velasco Discharge Problem: Seizure, IV drug abuse, Unresponsiveness, Elevated troponin Patient Disposition: Admitted As Inpatient Discharge Instructions Interventions: ED Discharge Assessment Last Done: 10/21/24 19:56 Forms Stand Alone Forms: [employer] Prescriptions Prescriptions: No Action (DME) Accucheck Rx Instructions: BID Referrals Referrals: [facility] [Primary Care Provider] -
[2024-10-21 17:38] LABS: Amphetamines+Metham, Urine Neg (Neg); Barbiturates, Urine Neg (Neg); Benzodiazepine, Urine Pos (Neg); Cocaine, Urine Neg (Neg); Fentanyl, Urine Neg (Neg); MDMA (Ecstacy), Urine Neg (Neg); Marijuana, Urine Pos (Neg); Methadone, Urine Neg (Neg); Opiate, Urine Neg (Neg); Phencyclidine, Urine Neg (Neg)
[2024-10-21 17:50] LABS: Appearance Urine Clear (Clear); Bilirubin Urine Negative (Negative); Blood Urine Negative (Negative); Color Urine Yellow; Glucose Urine UA Negative (Negative); Ketones Urine Negative (Negative); Leukocyte Esterase Urine Negative (Negative); Nitrite Urine Negative (Negative); Protein Urine Negative (Negative); Specific Gravity Urine 1.017 (1.000-1.030); Urobilinogen Urine Negative (Negative)
[2024-10-21] MEDS: levETIRAcetam 500 MG/5 ML VIAL IV STA (17:56)
--- NOTE | 2024-10-21 18:11 | History & Physical Report ---
Date of Service October 21, 2024 Assessment & Plan (1) Unresponsiveness: Plan: * Patient found unresponsive the present. No CPR was done. Patient had spontaneous circulation of blood. * In transit to hospital patient had witnessed seizure. * Currently patient is awake and somewhat oriented. Electrolytes are balanced. * Will admit and follow-up on PCU telemetry (2) Chest pain: Plan: * Nonspecific ST and T wave changes on EKG with high-sensitivity troponin of 31.5 * Physical examination reveals chest pain with palpation that does not seem to be cardiac in origin * Will trend troponin and repeat EKG in the morning * Continue aspirin 81 mg p.o. daily for now * Follow on telemetry (3) Elevated troponin: Plan: * See #2 above (4) Seizure: Plan: * Patient reports history of seizure in the past with no record of antiseizure medications with retirement * No history of seizure in review of epic but record is 3 years old * Patient loaded with Keppra in the emergency room. Will continue Keppra 500 mg p.o. twice daily with next dose due at 6 AM * Seizure precautions * Consult neurology and order EEG (5) IV drug abuse: Plan: * Patient reports that he is currently in withdrawal from methamphetamine. He quit using approximately 2 weeks ago. Undergoing supervised withdrawal * Continue clonazepam and Seroquel as ordered at the retirement * Monitor for further withdrawal (6) Anxiety: Plan: * Continue clonazepam * Continue Seroquel (7) Mood disorder: Plan: * Continue seroquel (8) GERD (gastroesophageal reflux disease): Plan: * Famotidine (9) Hep C w/o coma, chronic: Plan: * Unknown if treated in the past History of Present Illness Primary Care Provider: [facility] Attending: Dr. Mclaughlin Mr. Spicer is a 29-year-old male who presents from the [facility] unresponsive. Apparently patient was found unresponsive and initially thought to be pulseless but started breathing on his own shortly afterwards as per witness/elevated guard. Patient was in his cell. That was overturned and patient was on the floor. He does not have a cellmate. He was given midazolam 5 mg Followed by Narcan 2 mg. In Route to the hospital, patient was seen to go into what appeared to be tonic-clonic seizure and was then given another 5 mg of midazolam. This time patient was seen in his room for admission, he was awake and communicative. He reports that he has been in retirement for 2 weeks for not paying child support. He also reports that he is detoxing from methamphetamine and the guards report that the patient is on medications for detox through a doctor at the retirement-they think clonazepam and may be an atypical antipsychotic. Patient is unsure what happened in the retirement and has no recollection of being unresponsive. He reports that he has a history of seizures in the past but is not sure that he is on any seizure medication. Medication list from present does not include any antiseizure medications. Patient has been seen at [facility] with psychiatry going back to 2021 with no history of seizures listed. Patient does report that he has current chest pain. On examination, he is exquisitely tender in the right side. He also has right-sided abdominal pain with palpation. There is no bruising or evidence of trauma. Patient denies any previous trauma. Patient is very emotional and tearful regarding his pain. Patient does report that he is and that his has his medical history. Patient denies any shortness of breath. No headache. No scalp pain. No back pain. He denies awareness of any hematuria, melena, hematochezia, or bright red blood per rectum. Patient denies any THC use although talk screen comes back positive for THC. Allergies Allergy/AdvReac Type Severity Reaction Status Date / Time chocolate flavor Allergy Severe ANAPHYLAXIS Verified 05/02/19 19:41 cocoa Allergy Severe Anaphylaxis Verified 05/02/19 19:41 Home Medications Medication Instructions Recorded Confirmed Type Accucheck 10/21/24 10/21/24 History Past Med/Surg History Problem List (Updated 10/21/24 @ 20:04 by Richard Velasco MD) Hep C w/o coma, chronic IV drug abuse (Acute) Seizure (Acute) Elevated troponin (Acute) Chest pain Unresponsiveness (Acute) Environmental and seasonal allergies (Chronic) GERD (gastroesophageal reflux disease) (Chronic) Surgical History No significant past surgical history Family History (Updated 10/21/24 @ 20:26 by Anabel Mclaughlin MD) Grandfather (Maternal) Lymphoma Social History (Updated 10/21/24 @ 20:27 by Anabel Mclaughlin MD) Smoking Status: Former smoker Hx Alcohol Use: No Hx Substance Use: Yes Non-Prescribed Medications: IV Drugs, Marijuana and Methamphetamines Preferred Language: Vincentian marital status: Current Living Situation: Other Current Living Situation Comment: In [employer] current occupational status: employed Feels Safe at Home: Yes Review of Systems 2 Review of Systems: A total of 10 systems was reviewed and is negative other than as listed in the HPI Physical Exam 2 Physical Exam: GENERAL : Patient is very tearful throughout the course of my interview and physical examination EYES: No icterus, gaze conjugate. Pupils are equal and sluggish NOSE: No evidence of epistaxis. No evidence of septal breach MOUTH: No lesions or candidiasis. Tongue is midline. No facial droop. NECK: Supple. No appreciation of carotid bruits or stridor LUNGS: Generally CTA B/L, no wheezes, rales or rhonchi. Breath sounds are equal bilaterally. Good inspirational effort with SpO2 at 100% on room air HEART: Regular, tachycardic with a rate of 110 bpm ABDOMEN: Soft, ND, BS Present and appear to be normal active. Patient is tender to deep palpation on the right side. He has some guarding on the right side. EXTREMITIES: No LE edema, pedal pulses intact and equal bilaterally. No evidence of track calle in the arms, in between fingers, in between toes, or nailbeds. No tenderness to bilateral calves. No Homans' sign NEURO: A&O. Knows his name and that he is in retirement and why is not present. Is unable to give me his Social Security number or date of . No focal deficits appreciated on examination Results & Data Results & Data Vital Signs (Past 12 Hours) Vital Signs Temp Pulse Pulse Resp BP BP Pulse Ox 10/21/24 16:43 95 H 20 122/87 100 10/21/24 16:16 90 10/21/24 16:02 99 10/21/24 16:02 99 10/21/24 15:51 36.9 C 92 H 17 122/80 99 10/21/24 15:51 99 10/21/24 15:51 36.9 C 96 H 17 114/81 100 O2 Del Method O2 Flow Rate 10/21/24 16:43 Room Air 10/21/24 16:16 10/21/24 16:02 Room Air 10/21/24 16:02 Room Air 10/21/24 15:51 Room Air 10/21/24 15:51 Room Air 10/21/24 15:51 Non-rebreather 15 Laboratory Results 10/21/24 16:29 10/21/24 16:29 Laboratory Tests 10/21/24 10/21/24 10/21/24 16:29 16:29 16:40 Magnesium 2.0 Total Creatine Kinase 42 Troponin I High Sens 31.5 H Prolactin 8.10 U Benzodiazepines Scrn Pos H U Marijuana (THC) Screen Pos H Diagnostic Findings Cervical Spine CT 10/21/24 15:54 CT cervical spine without IV contrast History: Unresponsive Comparison: 05/12/2015 Technique: Using multidetector thin collimation helical acquisition technique, axial, coronal and sagittal CT images through the cervical spine were obtained without intravenous contrast. Dose reduction techniques were achieved by using automatic exposure control and/or adjustment of mA and/or kV according to patient size and/or use of iterative reconstruction technique. Findings: The cervical vertebrae are normally aligned. Normal cervical lordosis. No acute fracture or subluxation. No prevertebral edema. There is no disc height narrowing at any level. No substantial spinal canal or neural foraminal stenosis No abnormality of the paraspinous soft tissues. Impression: No acute fracture or traumatic subluxation. Electronically signed by Trung Bermudez 10-21-2024 4:51 PM L Chest X-Ray 10/21/24 15:54 Chest radiograph, one view History: Seizure-like activity Comparison: 03/29/2020 Findings: Single AP view of the chest performed. No focal consolidation or pleural effusion. No pneumothorax. The cardiomediastinal silhouette is within normal limits. Normal pulmonary vascularity. No evidence for lymphadenopathy. No visualized bony or soft tissue abnormality. Impression: Normal chest radiograph Electronically signed by Trung Bermudez 10-21-2024 4:[address] 10/21/24 15:54 CT head without contrast History: Unresponsive Comparison: 05/12/2015 Technique: Using multidetector thin collimation helical acquisition technique, axial, coronal and sagittal CT images from the skull base to the vertex were obtained without intravenous contrast. Dose reduction techniques were achieved by using automatic exposure control and/or adjustment of mA and/or kV according to patient size and/or use of iterative reconstruction technique. Findings: No intracranial hemorrhage, mass-effect, or midline shift. The ventricles are proportionate to the cerebral sulci. The ortega to white matter differentiation of the cerebral hemispheres is preserved. The basal cisterns are patent. The visualized paranasal sinuses are clear. Mastoid air cells are clear. Impression: No acute intracranial pathology. Electronically signed by Trung Bermudez 10-21-2024 4:48 PM ECG Additional Comments: L Code Status & VTE Plan VTE Prophylaxis Plan VTE Prophylaxis will be ordered: Yes Supervising Physician Co-Signing Physician Notes PA Supervision Note: I personally saw and examined the patient. I verified all you points and agree with DENYS Santana with the following exceptions and/or additions: S-this patient is a 29-year-old male who was recently incarcerated 2 weeks prior and has a known history of remote IV drug abuse and more recent methamphetamine abuse, hepatitis C, history of hypoglycemia, and mood disorder, who presents after being found down in a retirement cell unresponsive. The elevated guard who was a witness was present in the ED on admission. He reports initially the patient appeared to not be breathing but started breathing on his own about 5 to 10 seconds later. No CPR was performed. Patient was noted to have his eyes closed and his head was twitching [id number] a little bit. He then was noted to have a tonic-clonic generalized seizure in the ambulance on the way to the hospital and was given Versed. Patient does not recall anything except talking on the phone to his which the guard reports was 20 minutes prior to him being found down in his cell. The patient is having ongoing pains-he told DENYS santana that he was having severe pain on the right side of his chest but he told me it was on the left side of his chest and he was tender in his right lower abdomen. No blood in his urine or stool, no vomiting. He also reported he was having numbness in the left foot. History and ROS reviewed otherwise as above O- Vitals reviewed Gen: [AAOx3, NAD, restless, constantly moving] HEENT: [anicteric sclerae, EOMI] CV: [RRR no mgr nl S1S2] Pulm: [CTAB no wcr] Abd: [+BS soft mild TTP in RLQ without guarding or rebound, ND no masses or hernias] Ext: [no edema, 2+ DP pulses] Skin: [no rashes, warm/dry, numerous tattoos all over face, neck and torso, arms and legs] Neuro: [full strength throughout, decreased sensation to light touch of the entire left foot] CBC, BMP, procalcitonin, troponin reviewed. ECG reviewed A/G-89-wrsx-old male here with unresponsive episode after being found down-then later had another witnessed seizure. Likely having seizures. Unclear if related to withdrawal from methamphetamines or other drugs. He denies alcohol use specifically. He does report that he would take lorazepam occasionally when his would give it to him for what she thought were seizures at home. - Checking CT chest/abdomen/pelvis given pains in the abdomen and chest and unknown/unwitnessed fall - Trend troponin, ECG, consider echocardiogram if troponin trends upward - Continue home clonazepam and Seroquel as prescribed at the retirement for withdrawal symptoms - Continue Keppra, get EEG and consult neurology for seizure PG Care Time/CCT Total # of Minutes Spent Total Time Spent with Patient: Total time spent is greater than 50% in coordination of care (as documented) at patient's floor/unit and/or counseling patient: 60 minutes Coding Level of Care Code 31329 INT INP/OBS CARE 2/55MIN Diagnoses Unresponsiveness R41.89 Chest pain R07.9 Elevated troponin R79.89 Seizure R56.9 IV drug abuse F19.10 Anxiety F41.9 Mood disorder F39 GERD (gastroesophageal reflux disease) K21.9 Hep C w/o coma, chronic B18.2 Time Spent (min) 60
[2024-10-21] MEDS: OPTIRAY 320 100ml IV ONE (20:08)
[2024-10-21] MEDS ORDERED: ONDANSETRON INJ 2 MG/ML 2 ML VIAL IV PRN (20:15)
[2024-10-21] MEDS ORDERED: ALUMINUM/MAGNESIUM SUSP 30 ML UDC PO PRN (20:15)
[2024-10-21] MEDS ORDERED: POLYETHYLENE (MIRALAX) 17 GM PACK PO PRN (20:15)
[2024-10-21] MEDS ORDERED: MAGNESIUM HYDROXIDE SUSP 30 ML UDC PO PRN (20:15)
[2024-10-21] MEDS ORDERED: CALCIUM CARBONATE 500 MG CHEWABLE TAB PO PRN (20:15)
[2024-10-21] MEDS ORDERED: clonazePAM 0.5 MG TAB PO SCH (21:00)
[2024-10-21] MEDS: ACETAMINOPHEN 325 MG TAB PO PRN (21:21)
[2024-10-21] MEDS: diphenhydrAMINE Capsule 25 MG CAP PO SCH (21:21)
[2024-10-21] MEDS: ASPIRIN 81 MG ECTAB PO SCH (21:21)
[2024-10-21] MEDS: clonazePAM 0.5 MG TAB PO SCH (21:22)
[2024-10-21] MEDS: QUEtiapine FUMARATE 25 MG TABLET PO SCH (21:22)
--- NOTE | 2024-10-21 23:18 | CT Scan Report ---
Exam(s): CT CHEST Without Contrast EXAM: CT Chest Without Intravenous Contrast CLINICAL HISTORY: Reason for exam: Chest pain - found unresponsive. TECHNIQUE: Axial computed tomography images of the chest without intravenous contrast. CTDI is 12.46 mGy and DLP is 414.85 mGy-cm. Automated exposure control was utilized for the study. A dose lowering technique was utilized adhering to the principles of ALARA. COMPARISON: No relevant prior studies available. FINDINGS: Lungs: No mass. No consolidation. Pleural space: No pneumothorax. No significant effusion. Heart: No cardiomegaly. No significant pericardial effusion. No significant coronary artery calcifications. Bones/joints: . There are degenerative changes in the spine.. Soft tissues: Unremarkable. Vasculature: There is a 4 cm aneurysm noted of the ascending aorta. Lymph nodes: No enlarged mediastinal lymph nodes. IMPRESSION: There is a 4 cm aneurysm noted of the ascending aorta. Electronically signed by: Isaiah Mo MD 10/21/24 23:17 PM
--- NOTE | 2024-10-21 23:21 | CT Scan Report ---
Exam(s): CT ABDOMEN + PELVIS With Contrast IV Amt: 93ml optiray 320 EXAM: CT Abdomen and Pelvis With Intravenous Contrast CLINICAL HISTORY: Reason for exam: Abd Pain found unresponsive. TECHNIQUE: Axial computed tomography images of the abdomen and pelvis with intravenous contrast. CTDI is 12.6 mGy and DLP is 632 mGy-cm. Automated exposure control was utilized for the study. A dose lowering technique was utilized adhering to the principles of ALARA. CONTRAST: Patient received 93ml optiray 320 of IV contrast COMPARISON: 03/29/2020. FINDINGS: Motion artifact degrades image quality somewhat limiting the exam. ABDOMEN: Liver: No mass. Gallbladder and bile ducts: No calcified stones. No ductal dilation. Pancreas: No mass. No ductal dilation. Spleen: No splenomegaly. Adrenals: No mass. Kidneys and ureters: No solid mass. No hydronephrosis. Stomach and bowel: There is fluid and air within the stomach. There is air and stool noted in the colon.. PELVIS: Appendix: Unremarkable CT scan appearance noted the appendix.. Bladder: No calculi are noted within the bladder.. Reproductive: Unremarkable as visualized. ABDOMEN and PELVIS: Intraperitoneal space: No free air. No significant fluid collection. Bones/joints: No acute fracture. No dislocation. Soft tissues: Unremarkable. Vasculature: No abdominal aortic aneurysm or dissection. Lymph nodes: No enlarged lymph nodes. IMPRESSION: Unremarkable CT scan of the abdomen and pelvis, as described above Electronically signed by: Isaiah Mo MD 10/21/24 23:20 PM
[2024-10-22] MEDS: levETIRAcetam ORAL SOLN 100MG/ML PO SCH (05:38)
[2024-10-22 07:21] LABS: Basophils # (auto) 0.06 K/uL (0.00-0.20); Basophils % (auto) 0.7 %; Eosinophils # (auto) 0.16 K/uL (0.00-0.50); Hematocrit (blood only) 48.2 % (42.0-52.0); Immature Granulocytes # (auto) 0.03 K/uL (0.01-0.20); Immature Granulocytes % (auto) 0.4 %; Lymphocytes # (auto) 2.34 K/uL (1.20-3.40); Mean Corpuscular Hemoglobin 29.7 pg (25.0-34.0); Mean Corpuscular Hgb Conc 33.2 g/dL (32.0-36.0); Mean Corpuscular Volume 89.4 fL (80.0-100.0); Mean Platelet Volume 10.5 fL (9.4-12.4); Monocytes # (auto) 0.87 K/uL (0.11-0.59); Monocytes % (auto) 10.8 %; Neutrophils # (auto) 4.62 K/uL (1.40-6.50); Neutrophils % (auto) 57.1 %; Platelet Count 278 K/uL (130-400); RDW Coefficient of Variation 12.6 % (11.5-14.5); RDW Standard Deviation 41.2 fL (36.4-46.3); Red Blood Count 5.39 M/uL (4.70-6.10); White Blood Count 8.08 K/ul (4.8-10.8)
--- NOTE | 2024-10-22 07:35 | Electroencephalogram ---
EEG Procedure Note Date of Service October 22, 2024 Start / End Times Start Time: 606 End Time: [address] Mclaughlin History 29-year-old with history of unresponsive episode/seizure-like activity Home Medication List Medication Instructions Recorded Confirmed Type Accucheck 10/21/24 10/21/24 History Inpatient Medication List Acetaminophen (Acetaminophen 325 Mg Tab) 650 mg PO Q4H PRN PRN Reason: Pain or Fever Stop: 11/20/24 20:14 Last Admin: 10/21/24 21:21 Dose: 650 mg Documented By: CHRISTAL Aspirin (Aspirin 81 Mg Ectab) 81 mg PO QAM [facility] Stop: 11/20/24 20:14 Last Admin: 10/21/24 21:21 Dose: 81 mg Documented By: CHRISTAL Clonazepam (Clonazepam 0.5 Mg Tab) 0.5 mg PO [facility] Stop: 11/20/24 20:59 Last Admin: 10/21/24 21:22 Dose: Not Given Documented By: CHRISTAL Diphenhydramine HCl (Diphenhydramine Capsule 25 Mg Cap) 25 mg PO BID [facility] Stop: 11/20/24 20:59 Last Admin: 10/21/24 21:21 Dose: 25 mg Documented By: CHRISTAL Levetiracetam (Levetiracetam Oral Soln 100mg/Ml) 500 mg PO Q12H [facility] Stop: 11/21/24 05:59 Last Admin: 10/22/24 05:38 Dose: 500 mg Documented By: CHRISTAL Quetiapine Fumarate (Quetiapine Fumarate 25 Mg Tablet) 50 mg PO [facility] Stop: 11/20/24 20:59 Last Admin: 10/21/24 21:22 Dose: 50 mg Documented By: CHRISTAL Discontinued Medications Sodium Chloride (Nss) 1,000 mls @ 999 mls/hr IV .Q1H1M ONE Stop: 10/21/24 16:54 Last Infusion: 10/21/24 17:58 Dose: Infused Documented By: Admin: 10/21/24 16:06 Dose: 999 mls/hr Documented By: ANTHONY Ioversol (Optiray 320 100ml) 93 ml IV ONCE ONE Stop: 10/21/24 20:09 Last Admin: 10/21/24 20:08 Dose: 93 ml Documented By: YUKI Levetiracetam (Levetiracetam 500 Mg/5 Ml Vial) 1,550 mg 20 mg/kg (1550 mg) IV NOW STA Stop: 10/21/24 17:52 Last Admin: 10/21/24 17:56 Dose: 1,550 mg Documented By: MELISSA Miscellaneous (Rapid Sequence Induction Bag) Confirm Administered Dose 1 each N/A .STK-MED ONE Stop: 10/21/24 15:46 Last Admin: 10/21/24 16:26 Dose: Not Given Documented By: ANTHONY Description This is a 21 electrode EEG with a single channel dedicated to limited EKG. The electrodes were placed in accordance with the International 10-20 system. Interpretation The predominant background activity consists of a very well modulated 11 Hz activity, of up to 30 mV in amplitude,seen symmetrically distributed over the posterior head regions bilaterally. This activity attenuates with eye-opening and other alerting procedures. Admixed with the background activity was some low amplitude 8 to 9 Hz activity of higher amplitude. Photic stimulation was performed and elicited no change in the background activity and no abnormal responses were seen. Hyperventilation was not performed. A mild amount of muscle and movement artifact activity contaminated the recording, yet did not hinder interpretation to any significant degree overall. There were periods while there was T5, T3, A1 electrode artifact which was addressed and resolved by the mix technician. Throughout the recording, no focal abnormalities or potentially epileptogenic discharges were seen. There was no specific slow activity either. The patient entered the drowsy state from time to time with deeper stages of sleep not recorded. There was no further activation during brief periods of drowsiness. In summary, this EEG was sent normal during wakefulness and brief periods of drowsiness. No focal abnormalities, potentially epileptogenic discharges, or abnormal slow activity were seen. Clinical Correlation The absence of potentially epileptogenic activity does not exclude a seizure disorder, since interictally, EEGs can be normal. Clinical correlation is required. [facility] [place] EEG Procedure Codes Indication for Procedure (1) Seizure: Neurology Neurology: 58578 EEG include record awake & drowsy
[2024-10-22 07:39] LABS: Albumin Level 4.3 gm/dl (3.4-5.0); BUN Creatinine Ratio 11.2 (10-20); Bilirubin,Total 0.2 mg/dl (0.2-1.0); Calcium 9.4 mg/dl (8.6-10.3); Creatinine Clr Calc Pharmacy 106.6 ml/min; Globulin 2.2 gm/dl (2.5-4.0); Potassium 4.6 mmol/L (3.5-5.1); Total Protein 6.5 gm/dl (6.0-8.3)
[2024-10-22] MEDS ORDERED: clonazePAM 0.5 MG TAB PO SCH (08:00)
[2024-10-22] MEDS: QUEtiapine FUMARATE 25 MG TABLET PO SCH (08:31)
[2024-10-22] MEDS: FAMOTIDINE 20 MG TAB PO PRN (08:31)
[2024-10-22] MEDS: busPIRone 5 MG TAB PO SCH (08:31)
--- NOTE | 2024-10-22 08:37 | Hospitalist Progress Note ---
Date of Service October 22, 2024 Assessment & Plan (1) Unresponsiveness: (2) Seizure: (3) IV drug abuse: (4) Mood disorder: (5) Hep C w/o coma, chronic: Plan 29 M,. found unresponsive in assisted cell, alone, attempts to revive included versed and narcan, reportedly did have some seizure like activity, does not recall events, Echo shows some mildly depressed EF, history of recent methamphetamine use prior to incarceration approx 2 weeks ago #Seizure, cannot rule out, pt will not take our facial pericing for MRI, CT head is unremarkable as well as EEG, neurology recommends Keppra 500mg bid, recommends cardiogenic work up, Echo with global hypokinesis, EF 45-50%, cardiology consult is pending # elevated troponin, unclear etiology consider demand ischemia, check inflammatory markers, Echo has mild global hypokinesis cardiology eval # drug abuse Patient reports that he is currently in withdrawal from methamphetamine. He quit using approximately 2 weeks ago. Undergoing supervised withdrawal Continue clonazepam and Seroquel as ordered at the assisted #mood disorder with anxiety, seroquel and cloanzepam Admission and Anticipated Discharge Date Admission Date: October 21, 2024 Subjective pt cannot recall events and returned to normal at this time no other acute complaints at this time Physical Exam Physical Exam: awake alert and appropriate, non focal cardiac is regular Results & Data Results & Data Vital Signs (Past 12 Hours) Vital Signs Temp Pulse Resp BP Pulse Ox O2 Del Method 10/22/24 07:23 98.1 F 83 16 116/68 99 Room Air 10/22/24 02:56 97.7 F 86 20 109/63 96 Room Air 10/21/24 22:36 97.9 F 99 H 14 127/80 97 Room Air Laboratory Results review cbc review chemistry PG Care Time/CCT Total # of Minutes Spent Total Time Spent with Patient: Total time spent is greater than 50% in coordination of care (as documented) at patient's floor/unit and/or counseling patient: Coding Level of Care Code 10535 SUB INP/OBS CARE 3/50MIN Diagnoses Unresponsiveness R41.89 Seizure R56.9 IV drug abuse F19.10 Mood disorder F39 Hep C w/o coma, chronic B18.2
--- NOTE | 2024-10-22 10:51 | Neurology Consultation ---
Date of Consultation October 22, 2024 Assessment & Plan (1) Unresponsive episode: (2) Seizure: (3) IV drug abuse: Plan This patient was found unresponsive and pulseless October 21. On his way to the hospital, he had what seemed to be a generalized tonic-clonic seizure (secondary seizure). There was no seizure-like activity seen by anyone in the present before transportation by EMS. Exam was nonfocal, troponin was elevated, and prolactin was normal. Although he was sedated with altered responsiveness on admission, this was likely due to medication. At this point, it would be impossible to tell when the event was postictal as opposed to purely medication effect. Overall, neurologically I believe this is cardiovascular in origin and not a primary seizure disorder. He has no focal abnormalities, meningeal signs, or encephalopathy today. He is an IV methamphetamine user and this is known to cause cardiac dysrhythmias as well as effects on blood pressure. In addition, withdrawal symptoms can affect a patient cardiovascularly. Even though withdrawal and quetiapine can lead to seizures, the patient was on significant doses of clonazepam which would prevent seizures. Recommendations: 1. Remain on levetiracetam for now at 500 mg twice daily 2. MRI of the brain with and without contrast 3. Awaiting echocardiogram and further cardiovascular workup Overall, I spent a total of 90 minutes with this case, including review of records, direct evaluation of the patient, report generation, and discussion of the case with the patient at bedside and Dr. Sexton including differential diagnosis and treatment options. History of Present Illness Reason for Consultation: Patient is a 29-year-old, who was asked to see at the request of Dr. Mclaughlin, for neurologic evaluation regarding unresponsive episode. Requesting Physician: Dr. Mclaughlin Attending Physician: Dr. Sexton History of Present Illness This patient has a interesting history of falling "3 stories onto a marble floor" back around age 15. He was life flighted to [facility] and remembers waking up with a series of stitches along the right side of his head. There is a question of skull fracture but I have no information regarding this. Apparently he did not have seizures around that time and did not have a lot of deficits secondary except considerable retrograde amnesia (years) Over time, the patient has been stable neurologically. He does have a history of some anxiety and depression. 1 day, in the summer 2023, the patient had a total of 3 seizures without warning. He cannot remember much but he ended up not seeking medical care and was not put on anticonvulsant. He was on no medications for anxiety or depression at the time, but the patient is a known IV drug user including methamphetamine. The patient has been a prisoner at [facility] for the last 16 days. Sometime around 1500 he was talking on the phone and remembers hanging up. He does not remember after this. He was found on the ground pulseless and unresponsive around 1515. When EMS arrived at 1525, the patient did have a pulse, and fluttering". He was given Versed 5 mg followed by Narcan 2 mg. They were wondering if the patient had a seizure by some twitching because of 1546 as they were entering into the hospital drive he had some tonic-clonic jerking. He had another 5 mg of Versed. While in [facility], he has been detoxing off methamphetamines and has been on a combination of clonazepam and quetiapine. He arrived to the emergency room October 21 at 1551, with a temperature 36.9, pulse 96 and regular, respirate 17, blood pressure 114/81, and O2 saturation 100%. He was sedated at the time of admission. There was no evidence for tongue biting or incontinence. He did eventually have a complaint of right-sided chest pain CBC and CHEM profile were unremarkable. Prolactin level was 8 (normal for male 2.5-13). Urinalysis and drug toxicology screen was negative except for positive benzodiazepines and marijuana. CT scan of the head was unremarkable. CT scan of the cervical spine was unremarkable. A troponin was elevated. He was given levetiracetam, 1550 milligrams IV loading dose. He has had no further seizures. Today, CBC and CHEM profile were unremarkable. EEG this morning was normal awake and drowsy. There were no focal signs and no potentially epileptogenic discharges. Today the patient has little recall of yesterday's event has no new issues Allergies Allergy/AdvReac Type Severity Reaction Status Date / Time chocolate flavor Allergy Severe ANAPHYLAXIS Verified 05/02/19 19:41 cocoa Allergy Severe Anaphylaxis Verified 05/02/19 19:41 Home Medications Medication Instructions Recorded Confirmed Type Accucheck 10/21/24 10/21/24 History Patient History Surgical History No significant past surgical history Family History Grandfather (Maternal) Lymphoma Social History (Updated 10/22/24 @ 10:42 by Regulo Alvarenga MD) Smoking Status: Current every day smoker Tobacco Type: Cigarettes Hx Alcohol Use: No Hx Substance Use: Yes Non-Prescribed Medications: IV Drugs, Marijuana and Methamphetamines Preferred Language: Nicaraguan Communication Ability: Effective Rotary Adjuster Required: No Beliefs That Will Affect Care: None marital status: Current Living Situation: Other Current Living Situation Comment: prisoner current occupational status: employed current occupation: [employer] Feels Safe at Home: Yes Safety Concerns: Feels Safe At This Time Assistive Devices: None Review of Systems Constitutional: no fever, no fatigue and no weakness Eyes: no diplopia, no eye pain and no worsening vision Ear, Nose, Mouth, Throat: no ear pain, no tinnitus, no hearing loss, no dizziness, no snoring, no hoarseness and no dysphagia Respiratory: no cough and no dyspnea Cardiovascular: no chest pain, no palpitations and no lightheadedness Gastrointestinal: no abdominal pain, no nausea and no vomiting Musculoskeletal: no back pain, no neck pain, no radicular pain, no joint pain and no myalgia Integumentary: no rash and no lesions Neurologic: + numbness; no gait abnormality, no loca lized weakness, no generalized weakness, no tingling, no tremor(s), no abnormal movements, no headache(s), no abnormal speech, no confusion and no memory loss Psychiatric: no depression, no irritability, no anxiety, no difficulty concentrating, no confusion and no hallucinations Endocrine: no fatigue and no flushing Hematologic / Lymphatic: no easy bleeding and no easy bruising Allergy / Immunological: no urticaria and no problem reported Exam (Neuro) Physical Exam: The patient is ambidextrous The patient is awake, alert, and attentive. Speech is normal without any aphasia or dysarthria. Mentation and thought processes are intact, with full orientation and normal fund of knowledge. Mood and affect are normal and appropriate. Appearance and grooming are normal. Short and long-term memory are intact except for events of yesterday. Pupils are 4 mm bilaterally and reactive to light. Extraocular eye muscles are intact without nystagmus. Visual acuity and visual atwood seem normal grossly to confrontation. Patient has some decrease sensation to touch in left V1 and V3 distributions. Corneal reflexes are positive bilaterally. Facial strength and symmetry was normal bilaterally. Hearing seems intact grossly to voice and finger rub bilaterally. Palate moves well without asymmetry. There is normal sternocleidomastoid and trapezius strength bilaterally. Tongue is midline with good strength bilaterally. Neck has a full range of motion without discomfort. There are no cervical bruits bilaterally. There are no cranial or ocular bruits. Heart is without murmur. There is a regular rhythm and rate. Cervical, thoracic, and lumbar spine are nontender to palpation. Gait was not tested but stance sitting up in bed (with feet dangling) is quite normal. With outstretched arms there is no drift. There are no resting, postural, or action tremors. There is no ataxia with finger to nose testing. There is good facility in the hands. No other abnormal involuntary movements are noted. Motor strength is 5/5 diffusely in the arms bilaterally including deltoids, biceps, triceps, brachioradialis, wrist flexors and extensors, supply chain vice president, and intrinsic hand muscles. Motor strength is 5/5 diffusely in the legs bilaterally including hip flexors, quadriceps, hamstrings, gastrocnemius, tibialis anterior, tibialis posterior, and Peroneii muscles bilaterally. Toe extensors are normal and there is good bulk in the extensor digitorum brevis muscles bilaterally. The limbs have good tone without rigidity or spasticity. There is no atrophy noted in the muscles. Muscle bulk is normal, there is no tenderness to palpation, no myotonia to percussion, and no fasciculations seen. Sensory examination reveals some decreased touch in dorsum of his left hand (previous injury) Reflexes are 2/4 in the biceps, triceps, brachioradialis, quadriceps, and Achilles tendons bilaterally. Toes are downgoing with plantar stimulation bilaterally. Peripheral pulses are present and of normal quality distally in all 4 limbs. There is no peripheral edema noted in the limbs. Results & Data Vital Signs (Past 12 Hours) Vital Signs Temp Pulse Resp BP Pulse Ox O2 Del Method 10/22/24 07:23 36.7 C 83 16 116/68 99 Room Air 10/22/24 02:56 36.5 C 86 20 109/63 96 Room Air 04/27/25 22:36 36.6 C 99 H 14 127/80 97 Room Air PG Care Time/CCT Total # of Minutes Spent Total Time Spent with Patient: Total time spent is greater than 50% in coordination of care (as documented) at patient's floor/unit and/or counseling patient: Coding Level of Care Code 74319 INT INP/OBS CARE 3/75MIN Diagnoses Unresponsive episode R40.4 Seizure R56.9 IV drug abuse F19.10 Time Spent (min) 90
--- NOTE | 2024-10-22 11:36 | XCELERA ---
[id number]
[2024-10-22] MEDS: KETOROLAC 30 MG/ML VIAL IV ONE (18:21)
[2024-10-23 07:27] VITALS: RESP 18
--- NOTE | 2024-10-23 08:07 | Hospitalist Progress Note ---
Date of Service October 23, 2024 Assessment & Plan (1) Unresponsiveness: (2) Seizure: (3) IV drug abuse: (4) Mood disorder: (5) Hep C w/o coma, chronic: Plan 29 M,. found unresponsive in long term cell, alone, attempts to revive included versed and narcan, reportedly did have some seizure like activity, does not recall events, Echo shows some mildly depressed EF, history of recent methamphetamine use prior to incarceration approx 2 weeks ago #Seizure, cannot rule out, pt will not take out facial pericing for MRI, CT head is unremarkable as well as EEG, neurology recommends Keppra 500mg bid, recommends cardiogenic work up, Echo with global hypokinesis, EF 45-50%, cardiology consult is pending # elevated troponin, unclear etiology consider demand ischemia, check inflammatory markers, Echo has mild global hypokinesis cardiology eval # drug abuse Patient reports that he is currently in withdrawal from methamphetamine. He quit using approximately 2 weeks ago. Undergoing supervised withdrawal Continue clonazepam and Seroquel as ordered at the long term #mood disorder with anxiety, seroquel and cloanzepam Admission and Anticipated Discharge Date Admission Date: October 21, 2024 Results & Data Results & Data Vital Signs (Past 12 Hours) Vital Signs Temp Pulse Pulse Resp BP BP Pulse Ox 10/23/24 07:43 73 10/23/24 07:26 97.5 F L 61 18 124/77 98 10/23/24 03:11 97.5 F L 77 12 109/73 98 10/22/24 22:32 97.7 F 79 12 134/83 97 O2 Del Method 10/23/24 07:43 10/23/24 07:26 Room Air 10/23/24 03:11 Room Air 10/22/24 22:32 Room Air PG Care Time/CCT Total # of Minutes Spent Total Time Spent with Patient: Total time spent is greater than 50% in coordination of care (as documented) at patient's floor/unit and/or counseling patient: Coding Diagnoses Unresponsiveness R41.89 Seizure R56.9 IV drug abuse F19.10 Mood disorder F39 Hep C w/o coma, chronic B18.2
[2024-10-23] MEDS: METOPROLOL TARTRATE 25 MG TAB PO SCH (09:44)
--- NOTE | 2024-10-23 09:51 | Neurology Progress Note ---
Date of Service October 23, 2024 Assessment & Plan (1) Unresponsive episode: (2) Seizure: (3) IV drug abuse: Plan This patient was found unresponsive and pulseless October 21. On his way to the hospital, he had what seemed to be a generalized tonic-clonic seizure (secondary seizure). There was no seizure-like activity seen by anyone before transportation by EMS. And he has had no seizures since admission. Exam was nonfocal, troponin was elevated, and prolactin was normal. Although he was sedated with altered responsiveness on admission, this was likely due to medication. At this point, it would be impossible to tell when the event was postictal as opposed to purely medication effect. Overall, neurologically I believe this is cardiovascular in origin and not a primary seizure disorder. He has no focal abnormalities, meningeal signs, or encephalopathy on neurologic examination today. He is an IV methamphetamine user and this is known to cause cardiac dysrhythmias as well as effects on blood pressure. In addition, withdrawal symptoms can affect a patient cardiovascularly. Even though withdrawal and quetiapine can lead to seizures, the patient was on significant doses of clonazepam which would prevent seizures. The patient has a history of significant head trauma at age 15 but I have no further details regarding this Recommendations: 1. Remain on levetiracetam for now at 500 mg twice daily 2. Consider (in future) MRI of the brain with and without contrast, if the patient can take out the metal implant in his left face. 3. Otherwise, I have no further neurologic testing or treatment recommendations to make Overall, I spent a total of 35 minutes with this case, including review of records, direct evaluation of the patient, report generation, and discussion of the case with the patient at bedside, Tacos De Souza PA-C, and Dr. Sexton inc luding differential diagnosis and treatment options. Admission and Anticipated Discharge Date Admission Date: October 21, 2024 Subjective Patient has no complaint of pain or headache. He has had no seizures since admission. Echocardiogram was largely unremarkable although there are some minor valvular changes and some LVH. He is going to be getting a cardiology consult. Blood pressure is 124/77 pulse 73 and regular. Temperature is 36.4. Patient refused to take out the facial implant so he cannot get an MRI. Results & Data Vital Signs (Past 12 Hours) Vital Signs Temp Pulse Pulse Resp BP BP Pulse Ox 10/23/24 07:43 73 10/23/24 07:26 36.4 C L 61 18 124/77 98 10/23/24 03:11 36.4 C L 77 12 109/73 98 10/22/24 22:32 36.5 C 79 12 134/83 97 O2 Del Method 10/23/24 07:43 10/23/24 07:26 Room Air 10/23/24 03:11 Room Air 10/22/24 22:32 Room Air Exam (Neuro) Physical Exam: He is awake and alert. Speech is without aphasia or dysarthria. Mood and affect is normal appropriate. Extraocular muscles are intact without nystagmus. There is no facial droop. Limb movement and strength is symmetrical. PG Care Time/CCT Total # of Minutes Spent Total Time Spent with Patient: Total time spent is greater than 50% in coordination of care (as documented) at patient's floor/unit and/or counseling patient: Coding Level of Care Code 52612 SUB INP/OBS CARE 2/35MIN Diagnoses Unresponsive episode R40.4 Seizure R56.9 IV drug abuse F19.10
--- NOTE | 2024-10-23 09:57 | Cardiology Consultation ---
Date of Consultation October 23, 2024 Assessment & Plan (1) Unresponsive episode: (2) IV drug abuse: (3) Seizure: (4) Left ventricular systolic dysfunction (LVSD): (5) Ascending aortic aneurysm: Plan Mr. Spicer is a 29 year old male with a history of IV Drug Abuse, Mood Disorder, Anxiety, GERD, and Hepatitis C who presented from [facility] after he was found unresponsive alone in his cell. Apparently patient was found unresponsive and initially thought to be pulseless but started breathing within 5 to 10 seconds of being discovered as per ocean lifeguard. Patient was overturned and on the floor. He was given midazolam 5 mg followed by Narcan 2 mg. En route to the hospital, patient was seen to go into what appeared to be tonic-clonic seizure and was then given another 5 mg of midazolam. When evaluated by the admitting hospitalist in the patient's room for admission, he was awake and communicative. He stated that he has been in nursing home for 2 weeks for not paying child support. He also reports that he is detoxing from methamphetamine and the guards report that the patient is on medications for detox through a doctor at the nursing home - they think clonazepam and may be an atypical antipsychotic. Patient is unsure what happened in the nursing home and has no recollection of being unresponsive. He reports that he has a history of seizures in the past but is not sure that he is on any seizure medication. Medication list from present does not include any antiseizure medications. Patient has been seen at [facility] with psychiatry going back to 2021 with no history of seizures listed. Patient does complain of some positional chest pain, he told me that his chest pain is left sided, but he telling other providers that it is right sided. He will finish his snf sentence tomorrow. He will be able to follow-up as an outpatient and we can place a cardiac event monitor. Etiology of unresponsive episode is unknown. LV systolic function is mildly reduced with an LVEF of 45% to 50% and global hypokinesis possibly the result methamphetamine abuse, tachycardia secondary to stimulant drug, etc. Recommend the followin. Avoid drug use/abuse. 2. Begin Lopressor 25 mg b.i.d.. 3. Adequate fluid and caloric intake. 4. Follow-up as an outpatient, start with 30 day cardiac event monitor. History of Present Illness Reason for Consultation: -- Unresponsive episode. Requesting Physician: Rodri Sexton MD Attending Physician: Herberth Escobar MD History of Present Illness Mr. Spicer is a 29 year old male with a history of IV Drug Abuse, Mood Disorder, Anxiety, GERD, and Hepatitis C who presented from [facility] after he was found unresponsive alone in his cell. Apparently patient was found unresponsive and initially thought to be pulseless but started breathing within 5 to 10 seconds of being discovered as per ocean lifeguard. Patient was overturned and on the floor. He was given midazolam 5 mg followed by Narcan 2 mg. En route to the hospital, patient was seen to go into what appeared to be tonic-clonic seizure and was then given another 5 mg of midazolam. When evaluated by the admitting hospitalist in the patient's room for admission, he was awake and communicative. He stated that he has been in nursing home for 2 weeks for not paying child support. He also reports that he is detoxing from methamphetamine and the guards report that the patient is on medications for detox through a doctor at the nursing home - they think clonazepam and may be an atypical antipsychotic. Patient is unsure what happened in the nursing home and has no recollection of being unresponsive. He reports that he has a history of seizures in the past but is not sure that he is on any seizure medication. Medication list from present does not include any antiseizure medications. Patient has been seen at [facility] with psychiatry going back to 2021 with no history of seizures listed. Patient does complain of some positional chest pain, he told me that his chest pain is left sided, but he telling other providers that it is right sided. He will be able to follow-up as an outpatient and we can place a cardiac event monitor. Allergies Allergy/AdvReac Type Severity Reaction Status Date / Time chocolate flavor Allergy Severe ANAPHYLAXIS Verified 05/02/19 19:41 cocoa Allergy Severe Anaphylaxis Verified 05/02/19 19:41 Home Medications Medication Instructions Recorded Confirmed Type Accucheck 10/21/24 10/21/24 History buspirone 5 mg tablet 5 mg PO QAM #30 tabs 10/23/24 Rx clonazepam 0.5 mg tablet 0.5 mg PO HS #30 tabs 10/23/24 Rx levetiracetam 500 mg tablet 500 mg PO BID #60 tabs 10/23/24 Rx (Keppra) metoprolol tartrate 25 mg tablet 25 mg PO BID #60 tabs 10/23/24 Rx quetiapine 25 mg tablet 50 mg (2 x 25 mg) PO HS #60 tabs 10/23/24 Rx Patient History Surgical History No significant past surgical history Family History Grandfather (Maternal) Lymphoma Social History Smoking Status: Current every day smoker Tobacco Type: Cigarettes Hx Alcohol Use: No Hx Substance Use: Yes Non-Prescribed Medications: IV Drugs, Marijuana and Methamphetamines Preferred Language: Lithuanian Communication Ability: Effective [employer] Driver Required: No Beliefs That Will Affect Care: None marital status: Current Living Situation: Other Current Living Situation Comment: prisoner current occupational status: employed current occupation: [employer] Fe[employer] Safe at Home: Yes Assistive Devices: None Review of Systems Review of Systems: -- As per HPI. Physical Exam Physical Exam: Blood pressure 124/77, pulse 73 and regular. GENERAL: Patient in no acute distress. HEENT: Head is atraumatic, normocephalic. EOM's intact. Facies symmetric. No perioral cyanosis. NECK: No JVD. JVP is not elevated. Carotid upstrokes are + 2 bilaterally without bruits. CHEST/LUNGS: Slightly diminished breath sounds throughout, otherwise clear CVS: S1 and S2 are regular without murmurs, gallops, or rubs. PMI is nondisplaced. No lifts, heaves, or thrills. No abdominal aortic or renal bruits. ABDOMINAL EXAM: Bowel sounds are present. EXTREMITIES: No clubbing or cyanosis. No edema. Extremities are well perfused. NEUROLOGIC EXAM: Patient is awake, alert, and oriented. Pleasant and cooperative. Answers questions appropriately. Speech is clear. ECHOCARDIOGRAM 10/22/24: -- Mildly reduced LVEF 45% to 50%, mild global hypokinesis. -- No significant valvular abnormalities . Results & Data Vital Signs (Past 12 Hours) Vital Signs Temp Pulse Pulse Resp BP BP Pulse Ox 10/23/24 07:43 73 10/23/24 07:26 36.4 C L 61 18 124/77 98 10/23/24 03:11 36.4 C L 77 12 109/73 98 10/22/24 22:32 36.5 C 79 12 134/83 97 O2 Del Method 10/23/24 07:43 10/23/24 07:26 Room Air 10/23/24 03:11 Room Air 10/22/24 22:32 Room Air Diagnostic Findings CT SCAN HEAD 10/21/24: No intracranial hemorrhage, mass-effect, or midline shift. The ventricles are proportionate to the cerebral sulci. The ortega to white matter differentiation of the cerebral hemispheres is preserved. The basal cisterns are patent. The visualized paranasal sinuses are clear. Mastoid air cells are clear. Impression: No acute intracranial pathology. CTAP 10/21/24: ABDOMEN: Liver: No mass. Gallbladder and bile ducts: No calcified stones. No ductal dilation. Pancreas: No mass. No ductal dilation. Spleen: No splenomegaly. Adrenals: No mass. Kidneys and ureters: No solid mass. No hydronephrosis. Stomach and bowel: There is fluid and air within the stomach. There is air and stool noted in the colon.. PELVIS: Appendix: Unremarkable CT scan appearance noted the appendix.. Bladder: No calculi are noted within the bladder.. Reproductive: Unremarkable as visualized. ABDOMEN and PELVIS: Intraperitoneal space: No free air. No significant fluid collection. Bones/joints: No acute fracture. No dislocation. Soft tissues: Unremarkable. Vasculature: No abdominal aortic aneurysm or dissection. Lymph nodes: No enlarged lymph nodes. IMPRESSION: Unremarkable CT scan of the abdomen and pelvis, as described above. CT CHEST 10/21/24: Lungs: No mass. No consolidation. Pleural space: No pneumothorax. No significant effusion. Heart: No cardiomegaly. No significant pericardial effusion. No significant coronary artery calcifications. Bones/joints: . There are degenerative changes in the spine.. Soft tissues: Unremarkable. Vasculature: There is a 4 cm aneurysm noted of the ascending aorta. Lymph nodes: No enlarged mediastinal lymph nodes. IMPRESSION: There is a 4 cm aneurysm noted of the ascending aorta. Medications Administered Medication List Acetaminophen (Acetaminophen 325 Mg Tab) 650 mg PO Q4H PRN PRN Reason: Pain or Fever Stop: 11/20/24 20:14 Last Admin: 10/22/24 17:21 Dose: 650 mg Documented By: Admin: 10/21/24 21:21 Dose: 650 mg Documented By: CHRISTAL Aspirin (Aspirin 81 Mg Ectab) [facility] Stop: 11/20/24 20:14 Last Admin: 10/23/24 07:57 Dose: 81 mg Documented By: Admin: 10/22/24 08:31 Dose: 81 mg Documented By: Admin: 10/21/24 21:21 Dose: 81 mg Documented By: CHRISTAL Buspirone HCl (Buspirone 5 Mg Tab) [facility] Stop: 11/21/24 08:59 Last Admin: 10/23/24 07:57 Dose: 5 mg Documented By: Admin: 10/22/24 08:31 Dose: 5 mg Documented By: MELISSA Clonazepam (Clonazepam 0.5 Mg Tab) 0.5 mg PO HS [facility] Stop: 11/20/24 20:59 Last Admin: 10/21/24 21:22 Dose: Not Given Documented By: CHRISTAL Diphenhydramine HCl (Diphenhydramine Capsule 25 Mg Cap) 25 mg PO BID [facility] Stop: 11/20/24 20:59 Last Admin: 10/23/24 07:56 Dose: 25 mg Documented By: Admin: 10/22/24 21:10 Dose: 25 mg Documented By: Admin: 10/22/24 08:31 Dose: 25 mg Documented By: Admin: 10/21/24 21:21 Dose: 25 mg Documented By: CHRISTAL Famotidine (Famotidine 20 Mg Tab) 20 mg PO DAILY PRN PRN Reason: Dyspepsia Stop: 11/20/24 20:14 Last Admin: 10/23/24 07:56 Dose: 20 mg Documented By: Admin: 10/22/24 08:31 Dose: 20 mg Documented By: MELISSA Levetiracetam (Levetiracetam Oral Soln 100mg/Ml) 500 mg PO Q12H [facility] Stop: 11/21/24 05:59 Last Admin: 10/23/24 05:46 Dose: 500 mg Documented By: Admin: 10/22/24 16:40 Dose: 500 mg Documented By: Admin: 10/22/24 05:38 Dose: 500 mg Documented By: CHRISTAL Metoprolol Tartrate (Metoprolol Tartrate 25 Mg Tab) 25 mg PO BID [facility] Stop: 11/22/24 09:29 Last Admin: 10/23/24 09:44 Dose: 25 mg Documented By: MELISSA Quetiapine Fumarate (Quetiapine Fumarate 25 Mg Tablet) 25 mg PO QAM [facility] Stop: 11/21/24 08:59 Last Admin: 10/23/24 07:57 Dose: 25 mg Documented By: Admin: 10/22/24 08:31 Dose: 25 mg Documented By: MELISSA Quetiapine Fumarate (Quetiapine Fumarate 25 Mg Tablet) 50 mg PO HS [facility] Stop: 11/20/24 20:59 Last Admin: 10/22/24 21:08 Dose: 50 mg Documented By: Admin: 10/21/24 21:22 Dose: 50 mg Documented By: CHRISTAL Discontinued Medications Sodium Chloride (Nss) 1,000 mls @ 999 mls/hr IV .Q1H1M ONE Stop: 10/21/24 16:54 Last Infusion: 10/21/24 17:58 Dose: Infused Documented By: MELISSA(2) Admin: 10/21/24 16:06 Dose: 999 mls/hr Documented By: ANTHONY Ioversol (Optiray 320 100ml) 93 ml IV ONCE ONE Stop: 10/21/24 20:09 Last Admin: 10/21/24 20:08 Dose: 93 ml Documented By: YUKI Ketorolac Tromethamine (Ketorolac 30 Mg/Ml Vial) 30 mg IV NOW ONE Stop: 10/22/24 18:12 Last Admin: 10/22/24 18:21 Dose: 30 mg Documented By: MELISSA Levetiracetam (Levetiracetam 500 Mg/5 Ml Vial) 1,550 mg 20 mg/kg (1550 mg) IV NOW STA Stop: 10/21/24 17:52 Last Admin: 10/21/24 17:56 Dose: 1,550 mg Documented By: MELISSA(2) Miscellaneous (Rapid Sequence Induction Bag) Confirm Administered Dose 1 each N/A .STK-MED ONE Stop: 10/21/24 15:46 Last Admin: 10/21/24 16:26 Dose: Not Given Documented By: ANTHONY PG Care Time/CCT Total # of Minutes Spent Total Time Spent with Patient: Total time spent is greater than 50% in coordination of care (as documented) at patient's floor/unit and/or counseling patient:42 [place] [address] IN/OBS CONSULT LVL 4,60M Patient Type New History Detailed Exam Detailed Medical Decision Making High Complexity Diagnoses Unresponsive episode R40.4 IV drug abuse F19.10 Seizure R56.9 Left ventricular systolic dysfunction (LVSD) I51.89 Aneurysm of ascending aorta without rupture I71.21 Presence of rupture: without rupture Time Spent (min) 65 (5) Ascending aortic aneurysm Presence of rupture: without rupture Qualified Code(s): I71.21 - Aneurysm of the ascending aorta, without rupture
[2024-10-23 10:45] VITALS: PULSE 75; TEMP 97.7; O2SAT 95
[2024-10-23 11:32] LABS: Basophils # (auto) 0.05 K/uL (0.00-0.20); Basophils % (auto) 0.7 %; Eosinophils # (auto) 0.18 K/uL (0.00-0.50); Eosinophils % (auto) 2.4 %; Hemoglobin 16.2 g/dl (14.0-18.0); Immature Granulocytes # (auto) 0.02 K/uL (0.01-0.20); Immature Granulocytes % (auto) 0.3 %; Lymphocytes # (auto) 1.87 K/uL (1.20-3.40); Lymphocytes % (auto) 24.5 %; Mean Corpuscular Hemoglobin 30.1 pg (25.0-34.0); Mean Corpuscular Hgb Conc 34.5 g/dL (32.0-36.0); Mean Corpuscular Volume 87.4 fL (80.0-100.0); Mean Platelet Volume 10.6 fL (9.4-12.4); Monocytes % (auto) 10.5 %; Neutrophils # (auto) 4.71 K/uL (1.40-6.50); Neutrophils % (auto) 61.6 %; Platelet Count 301 K/uL (130-400); RDW Coefficient of Variation 12.8 % (11.5-14.5); RDW Standard Deviation 40.8 fL (36.4-46.3); Red Blood Count 5.38 M/uL (4.70-6.10); White Blood Count 7.63 K/ul (4.8-10.8)
[2024-10-23 12:18] LABS: BUN Creatinine Ratio 17.2 (10-20); Calcium 9.1 mg/dl (8.6-10.3); Creatinine Clr Calc Pharmacy 120.1 ml/min; Thyroid Stimulating Hormone 5.105 uIu/ml (0.300-4.500); Troponin I High Sensitivity 13.1 pg/ml (0-20)
[2024-10-23 12:37] LABS: Potassium 4.4 mmol/L (3.5-5.1)
--- NOTE | 2024-10-23 13:52 | Discharge Summary ---
Discharge Summary Date of Service October 23, 2024 Principal Dx & Hospital Course #1 = Principal Diagnosis (1) Unresponsiveness: (2) Seizure: (3) IV drug abuse: (4) Mood disorder: (5) Hep C w/o coma, chronic: Plan 29 M,. found unresponsive in retirement cell, alone, attempts to revive included versed and narcan, reportedly did have some seizure like activity, does not recall events, Echo shows some mildly depressed EF, history of recent methamphetamine use prior to incarceration approx 2 weeks ago #Seizure, cannot rule out, pt will not take out facial pericing for MRI, CT head is unremarkable as well as EEG, neurology recommends Keppra 500mg bid, recommends cardiogenic work up, Echo with global hypokinesis, EF 45-50%, cardiology consult recommends metoprolol 25 mg bid and follow up as an outpt with multiday event monitor # elevated troponin, unclear etiology consider demand ischemia, check inflammatory markers, Echo has mild global hypokinesis cardiology recommends metoprolol 25 mg bid, and follow up afer release from the retirement with [facility]ology and primary care in [place] # drug abuse Patient reports that he is currently in withdrawal from methamphetamine. He quit using approximately 2 weeks ago. Undergoing supervised withdrawal Continue clonazepam and Seroquel as ordered at the retirement #mood disorder with anxiety, seroquel and clonazepam Notes For Next Care Provider continue keppra and metoprolol and follow up with primary care after release from retirement Admission HPI Per Admitting Provider Attending: Dr. Mclaughlin Mr. Spicer is a 29-year-old male who presents from the [facility] retirement unresponsive. Apparently patient was found unresponsive and initially thought to be pulseless but started breathing on his own shortly afterwards as per witness/guard sergeant. Patient was in his cell. That was overturned and patient was on the floor. He does not have a cellmate. He was given midazolam 5 mg Followed by Narcan 2 mg. In Route to the hospital, patient was seen to go into what appeared to be tonic-clonic seizure and was then given another 5 mg of midazolam. This time patient was seen in his room for admission, he was awake and communicative. He reports that he has been in retirement for 2 weeks for not paying child support. He also reports that he is detoxing from methamphetamine and the guards report that the patient is on medications for detox through a doctor at the retirement-they think clonazepam and may be an atypical antipsychotic. Patient is unsure what happened in the retirement and has no recollection of being unresponsive. He reports that he has a history of seizures in the past but is not sure that he is on any seizure medication. Medication list from present does not include any antiseizure medications. Patient has been seen at [facility] with psychiatry going back to 2021 with no history of seizures listed. Patient does report that he has current chest pain. On examination, he is exquisitely tender in the right side. He also has right-sided abdominal pain with palpation. There is no bruising or evidence of trauma. Patient denies any previous trauma. Patient is very emotional and tearful regarding his pain. Patient does report that he is and that his has his medical history. Patient denies any shortness of breath. No headache. No scalp pain. No back pain. He denies awareness of any hematuria, melena, hematochezia, or bright red blood per rectum. Patient denies any THC use although talk screen comes back positive for THC. Discharge Exam cardiac is regular lungs are clear Discharge Plan Discharge Items Patient Disposition: [facility] Reason For Visit: UNRESPONSIVE Discharge Diagnosis: unresponsive episode, cannot rule out seizure or arrythmia Activity: Resume your previous activity Non-emergency contact: Primary Care Provider and Video Production Assistant Call non-emergency contact if: your symptoms worsen Follow-up/Referrals: [facility] [Primary Care Provider] - Diet: Regular Addtl Attending Provider Instructions: please take Keppra and Metoprolol twice a day, and follow up after retirement release with a primary care in [place] and cardiology in [place], if remaining in retirement for more than 2 weeks please arrange cardiology follow up. Pending Studies at Discharge: No Stand-Alone Forms: My [facility] Skilled Items Patient informed of condition?: Yes Discharge Level of Care: Other Communicable Disease: No Discharge Prognosis: Stable Lines: None Urinary Catheter: No Medications and DC Order Prescriptions: New quetiapine 25 mg Tablet 50 mg PO HS Qty: 60 0RF metoprolol tartrate 25 mg Tablet 25 mg PO BID Qty: 60 2RF levetiracetam [Keppra] 500 mg tablet 500 mg PO BID Qty: 60 3RF buspirone 5 mg Tablet 5 mg PO QAM Qty: 30 0RF clonazepam 0.5 mg Tablet 0.5 mg PO HS Qty: 30 0RF No Action (DME) Accucheck Rx Instructions: BID Discharge Orders: Discharge Order (Routine); Ordered 10/23/24 Ordered By: Rodri Sexton Admission Data Admit Date/Time: 10/21/24 18:51 Attending Provider: Rodri Sexton Admit Provider: Anabel Mclaughlin Primary Care Provider: [facility] Other Providers: Anabel Mclaughlin; Regulo Alvarenga; Herberth Escobar Hospital Stay Data Consultations 10/21/24 17:57 ED Decision to Admit Stat 10/21/24 20:37 Consult Neurology Routine 10/22/24 14:52 Consult Cardiology Routine Diagnostic Imagining Performed 10/21/24 15:54 CT cervical spine wo con Stat CT head/brain wo con Stat 10/21/24 18:51 CT abd pelvis IV con only Stat 10/21/24 18:51 CT chest diagnostic wo con Stat Discharge Instructions Given to Patient (Per Discharging Provider) please take Keppra and Metoprolol twice a day, and follow up after retirement release with a primary care in [place] and cardiology in [place], if remaining in retirement for more than 2 weeks please arrange cardiology follow up. Total Time Total Time Spent Total Time Spent (In Minutes): greater than 30 minutes required to create discharge Coding Level of Care Code 58478 INP/OBS DISCH >30 MIN Diagnoses Unresponsiveness R41.89 Seizure R56.9 IV drug abuse F19.10 Mood disorder F39 Hep C w/o coma, chronic B18.2
[2024-10-23 14:12] VITALS: BP 109/73
--- NOTE | 2024-10-25 08:42 | Electrocardiogram Report ---
Test Reason : Blood Pressure : */* mmHG Vent. Rate : 90 BPM Atrial Rate : 90 BPM P-R Int : 180 ms QRS Dur : 100 ms QT Int : 354 ms P-R-T Axes : 45 -25 247 degrees QTcB Int : 433 ms Normal sinus rhythm Incomplete right bundle branch block T wave abnormality, consider inferolateral ischemia Abnormal ECG When compared with ECG of 29-Mar-2020 18:17, Nonspecific T wave abnormality Inferior leads T wave inversion now evident in Lateral leads Confirmed by Herberth Escobar ([id number]) on 10/25/2024 8:42:26 AM Referred By: [facility] Confirmed By: Herberth Escobar
--- NOTE | 2024-10-25 08:53 | Electrocardiogram Report ---
Test Reason : Blood Pressure : */* mmHG Vent. Rate : 81 BPM Atrial Rate : 81 BPM P-R Int : 190 ms QRS Dur : 104 ms QT Int : 358 ms P-R-T Axes : 36 -29 -54 degrees QTcB Int : 415 ms Normal sinus rhythm Incomplete right bundle branch block Minimal voltage criteria for LVH, may be normal variant ( R in aVL ) T wave abnormality, consider inferior ischemia Abnormal ECG When compared with ECG of 21-Oct-2024 17:57, (unconfirmed) No significant change was found Confirmed by Herberth Escobar ([id number]) on 10/25/2024 8:52:41 AM Referred By: [facility] Confirmed By: Herberth Escobar
--- NOTE | 2024-10-25 09:13 | Electrocardiogram Report ---
Test Reason : Blood Pressure : */* mmHG Vent. Rate : 82 BPM Atrial Rate : 82 BPM P-R Int : 190 ms QRS Dur : 100 ms QT Int : 364 ms P-R-T Axes : 51 -26 -84 degrees QTcB Int : 425 ms Normal sinus rhythm Incomplete right bundle branch block Septal infarct , age undetermined Abnormal ECG When compared with ECG of 22-Oct-2024 05:20, (unconfirmed) ST no longer elevated in Anterior leads T wave inversion now evident in Anterior leads Confirmed by Herberth Escobar ([id number]) on 10/25/2024 9:12:40 AM Referred By: [facility] Confirmed By: Herberth Escobar
--- NOTE | 2024-10-25 09:22 | Electrocardiogram Report ---
Test Reason : Blood Pressure : */* mmHG Vent. Rate : 73 BPM Atrial Rate : 73 BPM P-R Int : 166 ms QRS Dur : 102 ms QT Int : 392 ms P-R-T Axes : 40 -21 -78 degrees QTcB Int : 431 ms Normal sinus rhythm Minimal voltage criteria for LVH, may be normal variant ( R in aVL ) T wave abnormality, consider inferior ischemia T wave abnormality, consider anterolateral ischemia Abnormal ECG When compared with ECG of 22-Oct-2024 17:34, (unconfirmed) Incomplete right bundle branch block is no longer Present Criteria for Septal infarct are no longer Present Confirmed by Herberth Escobar ([id number]) on 10/25/2024 9:22:04 AM Referred By: [facility] Confirmed By: Herberth Escobar
== END 2024-10-23 14:45 | DRG 101 ==
LOC: SUATTDRO → ED 15:49 → SUATTDRO 18:51 → 2E 18:51